=== PATIENT | male | born 1985 | race Caucasian/White ===

== ENCOUNTER → 2017-08-26 14:24 | Outpatient (CLI) | payer OTHER, SELFPAY ==
--- NOTE | 2017-08-26 15:52 | MR_ITS ---
MR head/brain wo con HISTORY: Dizziness with hearing loss and headache, blurred vision, tinnitus ITS.REASON: dizzy ORDERING PHYSICIAN: Ana Bowser PATIENT AGE: 31 years TECHNIQUE: Standard multiplanar multiecho sequences are performed without contrast. FINDINGS: No midline shift, mass effect, intracranial hemorrhage, or hydrocephalus. No evidence of acute infarction. A small extra-axial area of CSF signal intensity is present in the left sylvian region superiorly measuring 11 mm and may be due to a small incidental arachnoid cyst. There are 2 white matter hyperintensities in the deep white matter of the left frontal lobe which are nonspecific. These measure 2 and 4 mm. The cerebellopontine angles, cerebellum, and brainstem are unremarkable. The hippocampal gyri are unremarkable in the temporal horns are symmetric. No sinus air-fluid level or mastoid effusion. IMPRESSION: 1. Nonspecific small T2 white matter hyperintensities deep white matter left frontal lobe. These are nonspecific and could be due to small nonspecific gliotic foci. Migraine headache is also a consideration. Demyelinating process is felt to be less likely based on appearance. 2. Probable incidental small arachnoid cyst in the left sylvian area. 3. No acute intracranial findings
[2017-08-26 18:39] LABS: Basophils % 0.5 % (0.1-2.0); Eosinophils # 0.1 K/mm3 (0.0-0.4); Hematocrit 49.6 % (42.0-52.0); Hemoglobin 16.3 g/dL (14.1-18.0); Lymphocytes # 1.9 K/mm3 (0.7-4.5); Lymphocytes % 25.9 K/mm3 (10-50); Mean Corpuscular Hemoglobin 28.9 pg (27.0-31.2); Mean Corpuscular Volume 87.8 fl (80-94); Mean Platelet Volume 10.2 fl (7.4-10.4); Monocytes # 0.4 K/mm3 (0.1-1.0); Monocytes % 5.4 % (1.7-9.3); Neutrophils % 67.2 % (37.0-80.0); Platelet Count 200 K/mm3 (142-424); Red Blood Count 5.65 M/mm3 (4.60-6.20); Red Cell Distribution Width 12.7 % (11.5-17.5); White Blood Count 7.4 K/mm3 (4.8-10.8)
[2017-08-26 18:59] LABS: Hemoglobin A1C 4.9 % (0.0-7.0)
[2017-08-26 19:38] LABS: Alanine Aminotransferase 40 U/L (12-78); Albumin Level 4.5 gm/dL (3.4-5.0); Albumin/Globulin Ratio 1.2 (1.1-1.8); Alkaline Phosphatase 87 U/L (46-116); Anion Gap 12.3 mEq/L (5-15); Aspartate Amino Transferase 23 U/L (15-37); Bilirubin,Total 0.4 mg/dL (0.2-1.0); Blood Urea Nitrogen 15 mg/dL (7-18); Calcium 9.6 mg/dL (8.5-10.1); Carbon Dioxide 30 mmol/L (21.0-32.0); Chloride 102 mmol/L (98-107); Chol/HDL Ratio 5.5 (1-3.5); Cholesterol 232 mg/dL (140-200); Creatinine,Serum 1.04 mg/dL (0.70-1.30); Estimated Glomerular Filt Rate 83 ml/min (>60); Free T4 (Free Thyroxine) 1.14 ng/dl (0.76-1.46); GFR (African American) 100 ML/MIN (>60); Globulin 3.8 gm/dl (1.3-3.2); Glucose 94 mg/dL (74-106); HDL Cholesterol 42 mg/dL (27-67); LDL Cholesterol 123 mg/dL (0-130); Potassium 4.3 mmoL/L (3.5-5.1); Sodium 140 mmol/L (136-145); Thyroid Stimulating Hormone 3.11 uIU/ml (0.358-3.740); Total Protein,Serum 8.3 gm/dL (6.4-8.2); Triglycerides 335 mg/dL (30-200); VLDL Cholesterol 67 mg/dL (0-40)
[2017-08-28 16:16] LABS: Vitamin D 25 Hydroxy 16.8 ng/mL (30.0-100.0)
== END ==
PROVIDERS: PCP Nurse Practitioner Family; Visit Provider Nurse Practitioner Family
DX: R53.83 Other fatigue (principal); R42 Dizziness and giddiness; R51 Headache; H91.92 Unspecified hearing loss, left ear
CPT/HCPCS: 70551; 80053; 80061; 82652; 83036; 84439; 84443; 85025

== ENCOUNTER → 2019-07-23 14:30 | Outpatient (CLI) | payer OTHER, SELFPAY ==
[2019-07-23 14:33] LABS: Adenovirus,PCR Not Detected (NotDetected); Bordetella Pertussis Not Detected (NotDetected); Chlamydophila Pneumoniae, PCR Not Detected (NotDetected); Coronavirus 229E Not Detected (NotDetected); Coronavirus NL63 Not Detected (NotDetected); Coronavirus OC43 Not Detected (NotDetected); Coronovirus HKU1,PCR Not Detected (NotDetected); Human Metapneumovirus Not Detected (NotDetected); Influenza A, PCR Not Detected (NotDetected); Influenza AH1, 2009 Not Detected (NotDetected); Influenza AH1, PCR Not Detected (NotDetected); Influenza AH3,PCR Not Detected (NotDetected); Mycoplasma Pneumoniae, PCR Not Detected (NotDetected); Parainfluenza 1, PCR Not Detected (NotDetected); Parainfluenza 2, PCR Not Detected (NotDetected); Parainfluenza 3, PCR Not Detected (NotDetected); Parainfluenza 4, PCR Not Detected (NotDetected); Respiratory Syncytial Virus Not Detected (NotDetected); Rhinovirus/Enterovirus Not Detected (NotDetected)
--- NOTE | 2019-07-23 14:35 | XR_ITS ---
PROCEDURE: XR CHEST 2V CLINICAL HISTORY: COUGH, FEVER COMPARISON: No exams were available for comparison FINDINGS: The cardiomediastinal silhouette and pulmonary vascularity are within normal limits. The lungs are clear without infiltrates, suspicious nodules, or pleural effusions. No acute bony abnormalities. IMPRESSION: No acute findings. Dictated by: Slick Fuchs MD 07/23/2019 15:11 Electronically signed by Slick Fuchs MD in [place] 07/23/2019 15:11
[2019-07-23 17:19] LABS: Influenza B, PCR Detected (NotDetected)
== END ==
PROVIDERS: Visit Provider Internal Medicine Adolescent Medicine
DX: R06.02 Shortness of breath (principal); R05 Cough
CPT/HCPCS: 71046; 87486; 87581; 87633; 87798

== ENCOUNTER → 2021-06-09 18:10 | Outpatient (CLI) | payer BC, SELFPAY ==
[2021-06-09 18:45] LABS: Basophils # 0.1 K/mm3 (0-0.2); Basophils % 0.9 % (0.1-2.0); Eosinophils # 0.1 K/mm3 (0.0-0.4); Eosinophils % 1.3 % (0.1-12.0); Hematocrit 43.7 % (42.0-52.0); Hemoglobin 14.9 g/dL (14.1-18.0); Lymphocytes # 2.6 K/mm3 (0.7-4.5); Mean Corpuscular HGB Conc 34.2 g/dL (31.8-35.4); Mean Corpuscular Hemoglobin 29.7 pg (27.0-31.2); Mean Corpuscular Volume 86.9 fl (80-94); Mean Platelet Volume 9.7 fl (7.4-10.4); Monocytes # 0.5 K/mm3 (0.1-1.0); Neutrophils # 5.7 K/mm3 (1.8-7.8); Neutrophils % 62.8 % (37.0-80.0); Platelet Count 228 K/mm3 (142-424); Red Blood Count 5.03 M/mm3 (4.60-6.20); Red Cell Distribution Width 13.5 % (11.5-17.5); White Blood Count 9.1 K/mm3 (4.8-10.8)
[2021-06-09 19:05] LABS: Alanine Aminotransferase 37 U/L (12-78); Albumin Level 4.7 g/dl (3.5-5.0); Albumin/Globulin Ratio 1.7 (1.1-1.8); Alkaline Phosphatase 78 U/L (38-126); Anion Gap 14.2 mEq/L (5-15); Aspartate Amino Transferase 38 U/L (17-59); Bilirubin,Total 0.4 mg/dl (0.2-1.3); Blood Urea Nitrogen 14 mg/dl (9-20); Calcium 9.3 mg/dl (8.4-10.2); Carbon Dioxide 26 mmol/L (22.0-30.0); Chloride 105 mmol/L (98-107); Cholesterol 203 mg/dl (140-200); Estimated Glomerular Filt Rate 76 ml/min (>60); GFR (African American) 92 ML/MIN (>60); Globulin 2.7 g/dL (1.3-3.2); Glucose 85 mg/dl (74-100); HDL Cholesterol 34 mg/dl (40-60); Potassium 4.2 mmoL/L (3.5-5.1); Sodium 141 mmol/L (136-145); Total Protein,Serum 7.4 g/dl (6.3-8.2)
[2021-06-09 19:11] LABS: Triglycerides 465 mg/dl (30-150)
[2021-06-09 19:21] LABS: T4 (Thyroxine) 8.7 ug/dl (5.53-11.0)
[2021-06-09 19:22] LABS: 25-OH Vitamin D, Total 21.9 ng/mL (30-100)
[2021-06-09 19:23] LABS: Amphetamine/Metha Screen,Urine Negative ng/ml (<1000)
[2021-06-09 19:24] LABS: Barbiturates Screen,Urine Negative ng/ml (<200)
[2021-06-09 19:25] LABS: Benzodiazepines Screen,Urine Negative ng/ml (<200); Cannabinoid Screen,Urine Negative ng/ml (<50)
[2021-06-09 19:26] LABS: Cocaine Screen,Urine Negative ng/ml (<300)
[2021-06-09 19:27] LABS: Methadone Screen,Urine Negative ng/ml (<300); Opiate Screen,Urine Negative ng/ml (<300)
[2021-06-09 19:28] LABS: Phencyclidine Screen,Urine Negative ng/ml (<25)
== END ==
PROVIDERS: Visit Provider Nurse Practitioner Family
DX: E66.9 Obesity, unspecified (principal); E55.9 Vitamin D deficiency, unspecified; F51.01 Primary insomnia; Z68.36 Body mass index [BMI] 36.0-36.9, adult; Z79.899 Other long term (current) drug therapy
CPT/HCPCS: 80053; 80061; 80305; 82306; 84436; 84443; 85025

== ENCOUNTER 2023-07-10 09:19 | Outpatient (CLI) | payer OTHER, SELFPAY ==
--- NOTE | 2023-07-10 09:26 | US_ITS ---
FINAL REPORT TECHNIQUE: Sonographic images of the right upper quadrant were obtained. CLINICAL HISTORY: RUQ PAIN COMPARISON: None FINDINGS: PANCREAS: Unremarkable. LIVER: There is fatty infiltration of the liver.. No focal hepatic lesion. No intrahepatic biliary ductal dilatation. GALLBLADDER: No gallstones. No gallbladder wall thickening or pericholecystic fluid. There is mild distention of the gallbladder. COMMON DUCT: 3 mm. Normal for age. RIGHT KIDNEY: The right kidney measures 10.5 cm. There is no hydronephrosis, mass, or stone. FREE FLUID: None. IMPRESSION: Fatty infiltration of the liver. Mild distention of the gallbladder without stones seen. Reviewed, Interpreted and Dictated by Leonela Serrato MD Transcribed by Corrina Cuevas Authenticated and [facility]
== END 2023-07-10 23:59 ==
PROVIDERS: PCP Nurse Practitioner Family; Visit Provider Nurse Practitioner Family
DX: R10.11 Right upper quadrant pain (principal)
CPT/HCPCS: 76705

== ENCOUNTER 2023-07-26 09:34 | Outpatient (CLI) | payer OTHER, SELFPAY ==
--- NOTE | 2023-07-26 09:40 | NM_ITS ---
FINAL REPORT CLINICAL HISTORY: RT UPPER QUADRANT PAIN COMPARISON: None FINDINGS: Sequential anterior projection images of the abdomen were obtained after the intravenous injection of 8.07 mCi technetium 99m Choletec. There is normal uptake of radiotracer by the liver. The bile ducts and bowel are visualized by 5 minutes. Gallbladder activity is seen by 20 minutes. After 1 hour, 2.5 ?g of CCK was injected intravenously for calculation of gallbladder ejection fraction. The gallbladder ejection fraction is 70%, which is within normal limits. IMPRESSION: No evidence of cystic duct or bile duct obstruction. Normal gallbladder ejection fraction of 70%. Reviewed, Interpreted and Dictated by Adama Unger III, MD Transcribed by Che Lechuga Authenticated and [facility]
[2023-07-26] MEDS: SINCALIDE 2.5 MCG in 0.9 % SODIUM CHLORIDE 50 ML 100 MCG IV (09:50)
[2023-07-26] MEDS: ISOTOPE CHOLETECH;1 DOSE (UP TO 15 MCI) IV (11:10)
[2023-07-26] MEDS: SODIUM CHLORIDE 0.9% 10ML SYR (RAD ONLY) 10 ML IV (11:10)
== END 2023-07-26 23:59 ==
LOC: RAD 09:35
PROVIDERS: PCP Nurse Practitioner Family; Visit Provider Nurse Practitioner Family
DX: R10.11 Right upper quadrant pain (principal)
CPT/HCPCS: 78227; A9537; J2805

== ENCOUNTER 2023-07-26 16:28 | Emergency (ER) | payer OTHER, SELFPAY ==
[2023-07-26] VITALS (8 sets, daily range): BP systolic 99–128; BP diastolic 66–88; PULSE 57–74; RESP 16; TEMP 36.9; O2SAT 96–98; BMI 35.3
[2023-07-26 16:58] LABS: Basophils # 0.1 K/mm3 (0-0.2); Basophils % 1.3 % (0.1-2.0); Chloride 105 mmol/L (98-107); Eosinophils # 0.1 K/mm3 (0.0-0.4); Eosinophils % 1.8 % (0.1-12.0); Hematocrit 46.4 % (42.0-52.0); Hemoglobin 15.2 g/dL (14.1-18.0); Lymphocytes # 1.9 K/mm3 (0.7-4.5); Lymphocytes % 26.3 % (10-50); Mean Corpuscular HGB Conc 32.9 g/dL (31.8-35.4); Mean Corpuscular Hemoglobin 29.9 pg (27.0-31.2); Mean Platelet Volume 9.2 fl (7.4-10.4); Monocytes # 0.4 K/mm3 (0.1-1.0); Monocytes % 5.9 % (1.7-9.3); Neutrophils # 4.8 K/mm3 (1.8-7.8); Neutrophils % 64.7 % (37.0-80.0); Platelet Count 207 K/mm3 (142-424); Red Cell Distribution Width 13.5 % (11.5-17.5); Sodium 140 mmol/L (136-145); White Blood Count 7.4 K/mm3 (4.8-10.8)
[2023-07-26 17:00] LABS: Blood Urea Nitrogen 18 mg/dl (9-20); Creatinine Clearance Estimated 136 mL/min (50-200); Estimated Glomerular Filt Rate 62 ml/min (>60); GFR (African American) 75 ML/MIN (>60)
[2023-07-26 17:01] LABS: Alanine Aminotransferase 32 U/L (12-78); Albumin Level 4.3 g/dl (3.5-5.0); Albumin/Globulin Ratio 1.4 (1.1-1.8); Alkaline Phosphatase 77 U/L (38-126); Aspartate Amino Transferase 33 U/L (17-59); Bilirubin,Direct 0.2 mg/dl (0.0-0.4); Bilirubin,Total 0.5 mg/dl (0.2-1.3); Calcium 8.8 mg/dl (8.4-10.2); Carbon Dioxide 31 mmol/L (22.0-30.0); Glucose 89 mg/dl (74-100); Lipase 50 U/L (23-300); Total Protein,Serum 7.3 g/dl (6.3-8.2)
--- NOTE | 2023-07-26 17:10 | ED_ITS ---
Discharge Plan Disposition Patient Disposition: Home, Self-Care Prescriptions Prescriptions: New dexamethasone 6 mg tablet 6 mg PO DAILY Qty: 5 0RF valacyclovir 1 gram tablet 1,000 mg PO Q8H 10 Days Qty: 30 0RF Referrals Follow up/Referrals: Klaudia Post APRN [Primary Care Provider] - See instructions Activity Restrictions/Add. Instructions Additional Instructions/Restrictions: Call your family doctor to establish care for this visit to the emergency department and schedule follow-up within 48 hours to ensure improvement. If you have any worsening of your condition or any other concerning signs or symptoms, return to the emergency department or your primary care doctor for further evaluation. Clinical Impressions Clinical Impression: Abdominal pain, RLQ Instructions Patient Instructions: DI for Acute Abdominal Pain Discharge ED Provider: Dane Benjamin General Adult HPI General Chief complaint: Abdominal Pain Stated complaint: RLQ pain,nausea Time Seen by Provider: 07/26/23 16:33 Mode of Arrival: Ambulatory Source of Information: Patient Limitations: No Limitations Description of Symptoms (Recalled from ER Triage Doc. by RN): pt presents to ED with c/o RLQ pain radiating from the belly button. pt did have hyda scan for gallbladder that was normal this am. pt ongoing for awhile. History of Present Illness HPI narrative: 37-year-old male history of chronic abdominal pain and chronic diarrhea presenting with right lower quadrant pain. Patient states he has right upper quadrant pain pretty consistently with associated nonbloody, non-mucousy diarrhea. This has been going on for years. Patient has been getting this abdominal pain worked up on an outpatient basis. Today had HIDA scan due to concern for distended gallbladder and delayed emptying. HIDA scan with with 70% clearance. Shortly after HIDA scan, patient began having acute, stabbing right lower quadrant pain. Associated with difficulty and pain with walking, difficulty and pain with sitting up and riding in the car, general discomfort. No nausea or vomiting, no changes in his diarrhea or stool output. It is moderate, made worse with pressure, does not radiate. Related Data Previous Rx's Medication Instructions Recorded dexamethasone 6 mg tablet 6 mg PO DAILY #5 tabs 07/26/23 valacyclovir 1 gram tablet 1,000 mg PO Q8H 10 days #30 tabs 07/26/23 Allergies Allergy/AdvReac Type Severity Reaction Status Date / Time No Known Allergies Allergy Verified 06/20/22 14:24 [facility] Disclaimer: The information contained in this section may have been updated after the patient was seen, as this information can be updated by other users. Medical History (Updated 07/26/23 @ 20:44 by Dane Benjamin MD) Vitamin D deficiency (~08/29/17) Social History Smoking Status: Never smoker alcohol intake: never substance use type: denies use current occupational status: employed Travel in the last 8 weeks: None household members: spouse and children housing: house ROS Obtained: Yes All systems reviewed & no additional complaints except as documented Physical Exam General General appearance: alert and in no apparent distress Head Head exam: atraumatic and normocephalic Eye Eye exam: Present normal appearance, PERRL and EOMI ENT ENT exam: Present mucous membranes moist Neck Neck exam: Present normal inspection, full ROM and trachea midline Respiratory Respiratory exam: Absent respiratory distress, wheezes, stridor, accessory muscle use or prolonged expiratory phase Cardiovascular Cardiovascular exam: Present normal rhythm Abdominal Exam Abdominal exam: Present soft, tenderness and Franco's sign; Absent distention, guarding, rebound or rigidity Abdominal tenderness: Present RUQ, RLQ and moderate Extremities Exam Extremities exam: Absent edema Neurological Exam Neurological exam: Present alert, oriented X3, CN II-XII intact and normal gait; Absent motor sensory deficit Skin Skin exam: Present warm and dry; Absent diaphoresis or erythema Medical Decision Making Medical Records Medical records reviewed: Yes I reviewed the patient's medical records. Saman Inquiry Pt receiving controlled substance: No Saman was queried for this patient: No Vital Signs: 07/26/23 16:29 07/26/23 17:19 07/26/23 17:31 Temperature 98.4 F Temperature Source Oral Pulse Rate 74 68 Pulse Rate [Left Radial] 73 Respiratory Rate 16 Blood Pressure 115/74 114/74 Blood Pressure [Right Arm] 128/88 Blood Pressure Mean [Right Arm] 101 02 Sat by Pulse Oximetry 97 96 98 Oxygen Delivery Method Room Air Room Air Room Air 07/26/23 17:46 07/26/23 18:01 07/26/23 18:15 Temperature Temperature Source Pulse Rate 70 63 57 L Pulse Rate [Left Radial] Respiratory Rate Blood Pressure 109/66 L 99/69 L 122/73 Blood Pressure [Right Arm] Blood Pressure Mean [Right Arm] 02 Sat by Pulse Oximetry 97 97 97 Oxygen Delivery Method Room Air 07/26/23 18:31 Temperature Temperature Source Pulse Rate 63 Pulse Rate [Left Radial] Respiratory Rate Blood Pressure 122/67 Blood Pressure [Right Arm] Blood Pressure Mean [Right Arm] 02 Sat by Pulse Oximetry 98 Oxygen Delivery Method Lab Data Lab Results 07/26/23 16:34: Urine Color Yellow, Urine Appearance Clear, Urine pH 6.0, Ur Specific [place] >= 1.030, Urine Protein Negative, Urine Glucose (UA) Negative, Urine Ketones Negative, Urine Blood Negative, Urine Nitrate Negative, Urine Bilirubin Negative, Urine Urobilinogen 0.2, Ur Leukocyte Esterase Negative, Urine RBC None, Urine WBC None, Ur Squamous Epith Cells Occasional, Urine Bacteria None 07/26/23 16:46: WBC 7.4, RBC 5.10, Hgb 15.2, Hct 46.4, MCV 91.0, MCH 29.9, MCHC 32.9, RDW 13.5, Plt Count 207, MPV 9.2, Neut % (Auto) 64.7, Lymph % (Auto) 26.3, Gillespie % (Auto) 5.9, Eos % (Auto) 1.8, Baso % (Auto) 1.3, Neut # (Auto) 4.8, Lymph # (Auto) 1.9, Gillespie # (Auto) 0.4, Eos # (Auto) 0.1, Baso # (Auto) 0.1, Sodium 140, Potassium 4.0, Chloride 105, Carbon Dioxide 31 H, Anion Gap 8.0, BUN 18, C reatinine 1.30 H, Estimated Creat Clear 136, Estimated GFR 62, Est GFR ( Amer) 75, Glucose 89, Calcium 8.8, Total Bilirubin 0.5, Direct Bilirubin 0.2, AST 33, ALT 32, Alkaline Phosphatase 77, Total Protein 7.3, Albumin 4.3, Globulin 3.0, Albumin/Globulin Ratio 1.4, Lipase 50 07/26/23 17:18: Lactate 1.1 07/26/23 16:46 07/26/23 16:46 Orders (Tests/Meds): ED MEDICATIONS Discontinued Medications Generic Name Dose Route Start Last Admin Trade Name Freq PRN Reason Stop Dose Admin Lactated Ringer's 1,000 mls @ 999 mls/hr 07/26/23 17:09 07/26/23 17:18 Lactated Ringer's 1000 Ml Bag IV 07/26/23 18:09 999 mls/hr .Q1H1M ONE Administration Ketorolac Tromethamine 15 mg 07/26/23 16:48 07/26/23 17:11 Ketorolac 30mg/Ml Vial IV 07/26/23 16:49 15 mg ONCE ONE Administration ORDERS Category Date Time Status CT abdomen pelvis wo con Stat Cat Scan 07/26/23 18:41 Completed Bilirubin,Direct Stat Lab 07/26/23 16:46 Completed CBC w/Auto Diff [Complete Blood Count Auto Diff] Stat Lab 07/26/23 16:46 Completed CMP [Comprehensive Metabolic Panel] Stat Lab 07/26/23 16:46 Completed Diarrhea 6-11 Panel, Cdiff PCR Stat Lab 07/26/23 17:09 Ordered Lactic Acid Stat Lab 07/26/23 17:18 Completed Lipase Stat Lab 07/26/23 16:46 Completed UA [Urinalysis and Microscopic] Stat Lab 07/26/23 16:34 Completed Medical Decision Narrative: 37-year-old male history of chronic abdominal pain and chronic diarrhea presenting with right lower quadrant pain. Patient states he has right upper quadrant pain pretty consistently with associated nonbloody, non-mucousy diarrhea. This has been going on for years. Patient has been getting this abdominal pain worked up on an outpatient basis. Today had HIDA scan due to concern for distended gallbladder and delayed emptying. HIDA scan with with 70% clearance. Shortly after HIDA scan, patient began having acute, stabbing right lower quadrant pain. Associated with difficulty and pain with walking, difficulty and pain with sitting up and riding in the car, general discomfort. No nausea or vomiting, no changes in his diarrhea or stool output. It is moderate, made worse with pressure, does not radiate. History was obtained via conversation with patient and . On arrival, patient hemodynamically stable, alert, oriented x4, appropriate, GCS 15, moving all extremities spontaneously, pupils equal and reactive to light. Full physical exam performed and significant for right upper quadrant, right lower quadrant abdominal tenderness without signs of peritonitis. No flank tenderness. Patient in no acute distress, not actively retching, appears very well, but laying very still in bed stating comfort level is higher with less motion. Differential includes colitis, diverticulitis, nephrolithiasis, UTI, cholecystitis, choledocholithiasis, appendicitis, torsion, hernia, hepatitis, aortic pathology, mesenteric ischemia among others. Patient was given Toradol IV 15 mg for symptomatic management and correction of underlying abnormalities. Workup independently interpreted and significant for nonactionable CBC. Patient does have mild dehydration with creatinine 1.3. He was given fluids for this. Urinalysis negative. CT abdomen pelvis without acute intra-abdominal pathology, appendix appears normal. Patient does have spinal stenosis from previous injury. See radiology read for full review of final results. On reevaluation, patient resting comfortably bed. Given patient presentation, workup, history, this most likely represents neuropathic abdominal pain. Because patient at baseline without signs or symptoms of clinical decompensation, deemed appropriate for discharge. Results were relayed to patient who voiced understanding and were agreeable to outpatient management and follow up. At the time of discharge the patient was hemodynamically stable, tolerating PO, and mobilizing appropriately. Critical Care Critical Care Time Critical Care Time: No
[2023-07-26] MEDS: KETOROLAC 30MG/ML VIAL 15 MG IV (17:11)
[2023-07-26] MEDS: LACTATED RINGERS 1000ML 1,000 ML 999 ML IV (17:18)
[2023-07-26 17:37] LABS: Lactic Acid 1.1 mmol/L (0.7-2.1)
[2023-07-26 18:20] LABS: Microscopic, Urine URINE MICROSCOPIC (MICROSCOPIC)
[2023-07-26 18:27] LABS: Appearance,Urine CLEAR (Clear); Bilirubin,Urine Negative (Negative); Blood, Urine Negative (Negative); Color,Urine YELLOW (Yellow); Glucose,Urine (UA) Negative (Negative); Ketones,Urine Negative (Negative); Leukocyte Esterase,Urine Negative (Negative); Nitrate,Urine Negative (Negative); Protein,Urine Negative (Negative); Specific Gravity, Urine >= 1.030 (1.005-1.030); Urobilinogen,Urine 0.2 EU/dl (0.2)
--- NOTE | 2023-07-26 18:41 | CT_ITS ---
PROCEDURE INFORMATION: Exam: CT Abdomen And Pelvis Without Contrast Exam date and time: 07/26/2023 7:00 PM Age: 37 years old Clinical indication: Abdominal pain; Additional info: Rlq pain TECHNIQUE: Imaging protocol: Computed tomography of the abdomen and pelvis without contrast. Radiation optimization: All CT scans at this facility use at least one of these dose optimization techniques: automated exposure control; mA and/or kV adjustment per patient size (includes targeted exams where dose is matched to clinical indication); or iterative reconstruction. COMPARISON: No relevant prior studies available. FINDINGS: Liver: Unremarkable. Gallbladder and bile ducts: Unremarkable. Pancreas: Unremarkable. Spleen: Unremarkable. Adrenal glands: Unremarkable. Kidneys and ureters: Unremarkable. Stomach and bowel: Unremarkable. Appendix: No evidence of appendicitis. Intraperitoneal space: No free fluid. No pneumoperitoneum. Vasculature: Unremarkable. Lymph nodes: Unremarkable. Urinary bladder: Unremarkable. Reproductive: Unremarkable. 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 No evidence of acute osseous abnormality or suspicious bone lesions. Soft tissues: Unremarkable. IMPRESSION: 1. No acute findings in the abdomen or pelvis. 2. 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
[2023-07-26 18:51] LABS: Squamous Epithelial Cell,Urine Occasional #/hpf (0-5)
== END 2023-07-26 20:52 | disposition home or self-care (01) ==
PROVIDERS: Emergency Provider Emergency Medicine; PCP Nurse Practitioner Family
DX: R10.31 Right lower quadrant pain (principal); R19.7 Diarrhea, unspecified
CPT/HCPCS: 74176; 80053; 81001; 82248; 83605; 83690; 85025; 96361; 96374; 99285

== ENCOUNTER 2023-08-07 11:18 | Outpatient (CLI) | payer OTHER, SELFPAY ==
--- NOTE | 2023-08-07 11:19 | CT_ITS ---
FINAL REPORT TECHNIQUE: After the administration of oral and intravenous contrast, axial images were obtained through the abdomen and pelvis by computed tomography. The study was performed with techniques to keep radiation dose as low as reasonably achievable, (ALARA). Individual dose reduction techniques using automated exposure control or adjustment of mA and/or kV according to the patient's size were employed. CLINICAL HISTORY: abdominal pain, n/v/d COMPARISON: 07/26/2023 FINDINGS: Abdomen: The lung bases are clear. There is mild fatty infiltration of the liver. The gallbladder is present. The spleen, pancreas, adrenals and kidneys appear unremarkable. The aorta is normal in caliber. There is no free fluid or adenopathy. Pelvis: The appendix is normal. The urinary bladder is unremarkable. There is no free fluid or adenopathy. Moderate spinal canal compromise noted on the prior CT of July 25 remains present, particularly at the L4-5 and L5-S1 levels. IMPRESSION: No acute intra-abdominal process. Mild fatty infiltration of the liver. Reviewed, Interpreted and Dictated by Spencer Babin MD Transcribed by Corrina Cuevas Authenticated and [facility]
[2023-08-07] MEDS: SODIUM CHLORIDE 0.9% 10ML SYR (RAD ONLY) 10 ML IV (11:41)
[2023-08-07] MEDS: IOPAMIDOL-370 (76%);100ML BOTTLE 75 ML IV (11:41)
== END 2023-08-07 23:59 ==
LOC: RAD 11:19
PROVIDERS: PCP Nurse Practitioner Family; Visit Provider Surgery
DX: R10.31 Right lower quadrant pain (principal)
CPT/HCPCS: 74177; Q9967

== ENCOUNTER 2023-08-23 08:19 | Day surgery (SDC) | payer OTHER, SELFPAY ==
[2023-08-23 08:57] VITALS: BP 109/77; PULSE 70; RESP 18; TEMP 36.6; O2SAT 97; BMI 33.3
[2023-08-23] MEDS: LACTATED RINGERS 1000ML 1,000 ML 25 ML IV (09:01)
--- NOTE | 2023-08-23 09:27 | EXP.ANES.CKL ---
[facility] Disclaimer: The information contained in this section may have been updated after the patient was seen, as this information can be updated by other users. Medical History Vitamin D deficiency (~08/29/17) Surgical History H/O right knee surgery History of back surgery Family History Other Colon cancer Family history of myocardial infarction Family history of ulcerative colitis Social History Smoking Status: Never smoker alcohol intake: never substance use type: denies use current occupational status: employed Travel in the last 8 weeks: None household members: spouse and children housing: house [facility] Anesthesia Checklist Patient Identification Patient Identification: Arm Band and Verbal (Name & ) Structural Data Admitted From: Home Planned Operative Procedure/s: Colonoscopy Consent for Planned Operative Procedure(s) Verified: Yes NPO Status Verified Time NPO: 00:00 Additional verifications Anesthesia Reactions: No Airway Assessment Mallampati Score:: Class III C-Spine Mobility Assessed: Yes TMJ Mobility Assessed: Yes Dentition: Good Dentition Neurological Assessment Level of Consciousness: Awake Hx Seizures: No Numbness or tingling in extremities: No Anesthesia Plan Anesthesia Risk discussed: Yes Anesthesia Plan: Verified ASA Class: II Anesthesia Type: MAC
--- NOTE | 2023-08-23 09:32 | P.PCN_ITS ---
Procedure: Date: 08/23/23 Patient Date of :: 1985 Procedure Performed:: Total colonoscopy with polypectomy and biopsies Indications:: Patient presents for colonoscopy. He is a 37-year-old male originally referred and seen in the office for possible gallbladder. He works as a local combination truck driver. He describes symptoms ongoing for about a year. It has been somewhat progressively worse. He had a gallbladder ultrasound done which revealed fatty liver. He had a HIDA scan done which revealed an ejection fraction of 70%. He did have some diffuse cramping abdominal pain with CCK. He describes symptoms of diarrhea resembling bile. This is rather explosive. It is often preceded by cramping diffuse abdominal pain. His symptoms are usually worse postprandially. He has associated nausea. He actually had localization of the pain to the right lower quadrant and right pelvic area. He had an episode of this occurring which became quite severe on 07/26/2023 at which time he was seen and evaluated in the emergency department. He had a CT scan of the abdomen and pelvis performed without any contrast whatsoever. This reveals no acute findings in the abdomen or pelvis. Of note, he has congenital spinal stenosis with superimposed hypertrophic degenerative changes resulting in moderate to severe spinal canal stenosis. Of note, his father had colon cancer at approximately his age. Etiology of his symptoms seem rather unusual and unclear. Plan was made for tentative colonoscopy given the family history and symptoms. However CT scan with actual IV and oral contrast was ordered prior to that. This revealed no acute intra-abdominal process. Mild fatty infiltration of the liver. Due to the fact that he was unable to get an appointment with gastroenterology for some time plan was made to proceed with colonoscopy. He does have an upcoming appointment with [facility] on 09/12/2023. He has had ongoing significant symptoms of cramping pain with sharp pains in different areas of his abdomen. Occasionally will be in the right lower quadrant, right upper quadrant, towards his back, etc. He has appreciable diarrhea. He has no appetite. . Performing Provider:: Adama Diaz MD Referring Provider:: Klaudia Post Sedation:: MAC sedation Procedure:: Patient history was obtained and appropriate physical examination was performed. Patient's medications and allergies were reviewed. Informed consent was obtained after explaining the benefits, alternatives, and risks of the procedure including, but not limited to, bleeding, perforation, missed lesions, and adverse reaction to anesthesia medications. Patient was transported to endoscopy procedure room. Patient was connected to monitoring devices. Throughout the procedure the patient's blood pressure, pulse, and oxygen saturations were monitored continuously. Patient identification and planned procedure were verified by the staff. Patient was positioned in lateral decubitus position. Digital anorectal exam was performed. Variable stiffness Olympus colonoscope was inserted and advanced under direct visualization to the cecum. Adequacy of the colonic preparation was noted. The colonoscope was advanced a short distance into the terminal ileum. The colonoscope was then slowly withdrawn while carefully examining the color, texture, anatomy, and integrity of the mucosoa circumferentially. Within the rectum retroflexion was performed. Colonoscope was then withdrawn. . Impression: Colonic preparation was good. There was some lymphoid tissue within the terminal ileum. Biopsies were obtained. He underwent random right and random left colon biopsies using biopsy forceps to evaluate for microscopic colitis. At the hepatic flexure there was an adenomatous appearing polyp removed with cold snare with residual tissue removed with biopsy forceps. In the proximal transverse colon just distal to the hepatic flexure there was a possible diminutive polyp removed with biopsy forceps. In the sigmoid colon there was a polyp removed with cold snare. Rectosigmoid region there were a couple of hyperplastic appearing polyps removed with biopsy forceps. . Findings:: Polyps as noted above Rare sigmoid diverticulosis Recommendations:: Likely repeat colonoscopy 3 years given family history of colon cancer in first- degree relative at a young age with probable adenomatous appearing polyps. As to the etiology of his symptoms, this is somewhat unclear. This may be functional/medical/dietary. Agree with gastroenterology evaluation. Unlikely gallbladder etiology. Complications:: None immediately apparent Estimated blood obtained (mL): 3 Colonoscopy Component Colonoscopy Component Was a colonoscopy performed during today's procedure?: Yes Recommended follow up colonoscopy of at least 10 years?: No If no, follow up colonoscopy recommended in ___ years?: See above Reason for not recommending >/= 10 yr follow-up interval?: See above
[2023-08-23 09:44] VITALS: O2SAT 97
[2023-08-23 10:24] VITALS: BP 120/73; PULSE 71; RESP 16; TEMP 36.4; O2SAT 92
[2023-08-23 10:34] VITALS: BP 118/73; PULSE 65; RESP 16; O2SAT 92
[2023-08-23 10:44] VITALS: BP 126/84; PULSE 78; RESP 16; O2SAT 96
[2023-08-23 10:54] VITALS: BP 129/70; PULSE 89; RESP 16; TEMP 36.6; O2SAT 98
== END 2023-08-23 10:54 | disposition home or self-care (01) ==
PROVIDERS: PCP Nurse Practitioner Family; Visit Provider Surgery
PROC: (CPT 45380; principal; 2023-08-23 09:30)
DX: D12.5 Benign neoplasm of sigmoid colon (principal); D12.3 Benign neoplasm of transverse colon; K63.5 Polyp of colon; R63.8 Other symptoms and signs concerning food and fluid intake; K76.0 Fatty (change of) liver, not elsewhere classified; R11.0 Nausea; R19.7 Diarrhea, unspecified; R10.31 Right lower quadrant pain; Z80.0 Family history of malignant neoplasm of digestive organs; Z12.11 Encounter for screening for malignant neoplasm of colon; K57.92 Diverticulitis of intestine, part unspecified, without perforation or abscess without bleeding
CPT/HCPCS: 45380; 45385; J2704

== ENCOUNTER 2023-09-19 08:22 | Outpatient (CLI) | payer OTHER, SELFPAY ==
[2023-09-19 08:27] LABS: Adenovirus F 40/41, stool Not Detected (NotDetected); Astrovirus Not Detected (NotDetected); Campylobacter Not Detected (NotDetected); Clostridium Difficile A/B, PCR Not Detected (NotDetected); Cryptosporidium Not Detected (NotDetected); Cyclospora Cayetanesis Not Detected (NotDetected); Entamoeba histolytica Not Detected (NotDetected); Enteroaggregative E coli Not Detected (NotDetected); Enterotoxigenic E coli Not Detected (NotDetected); Giardia lamblia Not Detected (NotDetected); Norovirus Not Detected (NotDetected); Plesimonas Shigalloides, PCR Not Detected (NotDetected); Rotavirus A Not Detected (NotDetected); Salmonella, PCR Not Detected (NotDetected); Sapovirus Not Detected (NotDetected); Shiga-like toxin E coli Not Detected (NotDetected); Shigella Enterovasive E coli Not Detected (NotDetected); Vibrio Cholerae Not Detected (NotDetected); Vibrio, PCR Not Detected (NotDetected); Yersinia Entercolitica, PCR Not Detected (NotDetected)
[2023-09-19 09:20] LABS: Chloride 106 mmol/L (98-107); Potassium 3.9 mmoL/L (3.5-5.1); Sodium 139 mmol/L (136-145)
[2023-09-19 09:22] LABS: Blood Urea Nitrogen 14 mg/dl (9-20); Estimated Glomerular Filt Rate 83 ml/min (>60); GFR (African American) 101 ML/MIN (>60)
[2023-09-19 09:23] LABS: Alanine Aminotransferase 32 U/L (12-78); Albumin Level 4.3 g/dl (3.5-5.0); Albumin/Globulin Ratio 1.3 (1.1-1.8); Alkaline Phosphatase 86 U/L (38-126); Anion Gap 10.9 mEq/L (5-15); Aspartate Amino Transferase 34 U/L (17-59); Bilirubin,Total 0.8 mg/dl (0.2-1.3); Calcium 9.2 mg/dl (8.4-10.2); Carbon Dioxide 26 mmol/L (22.0-30.0); Globulin 3.2 g/dL (1.3-3.2); Glucose 110 mg/dl (74-100); Total Protein,Serum 7.5 g/dl (6.3-8.2)
[2023-09-19 09:31] LABS: INR 1.02 (0.9-1.1)
[2023-09-19 12:36] LABS: Enteropathogenic E coli Detected (NotDetected)
[2023-09-20 13:15] LABS: AFP, Tumor Marker 3.1 ng/mL (0.0-6.9); HBsAg Screen Negative (Negative); HCV Ab Non Reactive (Non Reactive); Hep A Ab, IGM Negative (Negative); Hep B Core Ab, IgM Negative (Negative)
[2023-09-27 01:11] LABS: Calprotectin, Fecal 290 ug/g (0-120)
[2023-09-28 07:59] LABS: Pancreatic Elastase, Fecal 396 (>200)
[2023-09-28 12:14] LABS: Fibrosis Score 0.05; Fibrosis Stage F0-NO FIBROSIS; NASH Grade N1-MILD NASH; NASH Score 0.26; Steatosis Grade S2-S3; Steatosis Score 0.63
[2023-09-28 12:15] LABS: Alpha 2-Macroglobulins, Qn 113; Apolipoprotein A-1 121; Bilirubin, Total 0.2; Haptoglobin 165
[2023-09-28 12:16] LABS: ALT (SGPT) P5P 26; AST (SGOT) P5P 24; Cholesterol, Total 182; GGT 46
[2023-09-28 12:17] LABS: Glucose 104; Triglycerides 209
== END 2023-09-19 23:59 | disposition home or self-care (01) ==
PROVIDERS: Surgery; PCP Nurse Practitioner Family; Visit Provider Nurse Practitioner
DX: R10.31 Right lower quadrant pain (principal); R10.10 Upper abdominal pain, unspecified; Z83.79 Family history of other diseases of the digestive system; K92.1 Melena; K76.0 Fatty (change of) liver, not elsewhere classified; R10.13 Epigastric pain; R89.3 Abnormal level of substances chiefly nonmedicinal as to source in specimens from other organs, systems and tissues; A04.0 Enteropathogenic Escherichia coli infection
CPT/HCPCS: 36415; 80053; 80074; 82105; 82656; 83993; 85610; 87506

== ENCOUNTER 2024-01-09 10:53 | Day surgery (SDC) | payer OTHER, SELFPAY ==
[2024-01-06 17:09] VITALS: BMI 35.3
[2024-01-09 11:10] VITALS: BP 156/81; PULSE 66; RESP 16; TEMP 36.4; O2SAT 99
--- NOTE | 2024-01-09 12:13 | EXP.ANES.CKL ---
[facility] Disclaimer: The information contained in this section may have been updated after the patient was seen, as this information can be updated by other users. Medical History Vomiting Melena Nausea Vitamin D deficiency (~08/29/17) Surgical History H/O right knee surgery History of back surgery Family History Other Colon cancer Family history of myocardial infarction Family history of ulcerative colitis Social History Smoking Status: Never smoker alcohol intake: never substance use type: denies use current occupational status: employed Travel in the last 8 weeks: None household members: spouse and children housing: house [facility] Anesthesia Checklist Patient Identification Patient Identification: Arm Band, Family and Verbal (Name & ) Structural Data Admitted From: Home Planned Operative Procedure/s: EGD w/dilation Consent for Planned Operative Procedure(s) Verified: Yes Verified Documents: Surgical Consent and History and Physical NPO Status Verified Time NPO: 00:00 Chart Verification Results Verified: CBC, BMP, PT, PTT, INR and Chest Xray Additional verifications Patient : No Anesthesia Reactions: No Cardiovascular Assessment Heart Sounds: S1 & S2 Pulse Rhythm: Irregular Airway Assessment Mallampati Score:: Class II C-Spine Mobility Assessed: Yes (FROM demonstrated) TMJ Mobility Assessed: Yes Dentition: Good Dentition (nothing loose per pt.) Neurological Assessment Level of Consciousness: Awake, Alert, Appropriate and Follows Commands Hx Seizures: No Numbness or tingling in extremities: No Anesthesia Plan Anesthesia Risk discussed: Yes Anesthesia Plan: Verified ASA Class: II Anesthesia Type: MAC
[2024-01-09 12:53] VITALS: O2SAT 100
--- NOTE | 2024-01-09 13:10 | HMH.SCOPE ---
Procedure: Date: 01/09/24 Patient Date of :: 1985 Procedure Performed:: EGD/biopsies/dilation Indications:: Chronic GERD/occasional dysphagia Performing Provider:: Lanny Hooker MD Referring Provider:: Mila Hooker APRN Sedation:: Propofol Procedure:: The gastroscope was gently passed through the incisoral orifice into the oral cavity and under direct visualization the esophagus was intubated. The endoscope was passed down the esophagus, through the stomach, and into the duodenum. Color, texture, mucosa, and anatomy of the esophagus, stomach, and duodenum were carefully examined with the scope. Findings:: Oropharynx: normal Esophagus: normal, empiric dilation performed with 58F bougie EG Junction: intact at 40 cm Cardia: normal Fundus: normal Body: normal, random biopsies obtained for h.pylori evaluation Antrum: normal Duodenal bulb: normal Duodenum (second and third portion): normal Impression: Overall normal EGD Symptomatic dysphagia treated with bougie dilation Specimens:: Gastric Recommendations:: Antireflux routine daily. PPI medication prn. Repeat dilation as clinically indicated. Complications:: None Estimated blood obtained (mL): 0 Colonoscopy Component Colonoscopy Component Was a colonoscopy performed during today's procedure?: No
[2024-01-09 13:15] VITALS: BP 111/67; PULSE 68; RESP 14; TEMP 36.4; O2SAT 93
[2024-01-09 13:29] VITALS: BP 113/71; PULSE 71; RESP 16; O2SAT 98
[2024-01-09 13:45] VITALS: BP 118/67; PULSE 69; RESP 18; O2SAT 98
== END 2024-01-09 13:45 | disposition home or self-care (01) ==
PROVIDERS: PCP Nurse Practitioner Family; Visit Provider Internal Medicine Gastroenterology
PROC: 0DJ08ZZ Inspection of Upper Intestinal Tract, Via Natural or Artificial Opening Endoscopic (ICD-10-PCS; CPT 43235; principal; 2024-01-09 12:00)
DX: K21.9 Gastro-esophageal reflux disease without esophagitis (principal); R13.10 Dysphagia, unspecified; R10.13 Epigastric pain
CPT/HCPCS: 43239; 43450; J7120

== ENCOUNTER 2024-11-18 12:54 | Emergency (ER) | payer OTHER, SELFPAY ==
[2024-11-18 13:00] VITALS: BP 147/88; BP 153/95; PULSE 75; PULSE 79; RESP 16; RESP 18; TEMP 36.8; O2SAT 95; O2SAT 97; BMI 34.7
--- NOTE | 2024-11-18 13:01 | ECG_ITS ---
APPROVED REPORT Exam: Resting ECG HR:75 bpm ECG Measurements Heart Rate 75 AXES MS 162 P 53 QRSd 102 QRS -12 QT 385 T 73 QTc 414 Conclusion SINUS RHYTHM LOW QRS VOLTAGE IN PRECORDIAL LEADS [QRS DEFLECTION < 1.0 mV IN CHEST LEADS] BORDERLINE ECG Electronically signed by : RADHA PATTERSON, 11/18/2024 15:58:27
--- NOTE | 2024-11-18 13:12 | XR_ITS ---
FINAL REPORT CLINICAL HISTORY: Precordial chest pain COMPARISON: None FINDINGS: The heart size is normal. The mediastinum is normal. The lungs are underinflated. There is no focal infiltrate or edema. There are no pleural effusions. There is no pneumothorax. There is no osseous abnormality. IMPRESSION: No acute cardiopulmonary process Reviewed, Interpreted and Dictated by Spencer Babin MD Transcribed by Che Lechuga Authenticated and [facility]
--- OUTSIDE RECORDS SUMMARY | 2024-11-18 13:12 | XMS_ITS | Data Portability ---
Author Organization [facility] Address [address] [place] [address] Assessment No assessment recorded. Plan of Treatment Reminders Order Date Submit Date Provider Last Modified By Organization Details Last Modified Time Details Appointments None recorded. Lab drug screen, urine 2024 025 [facility], [address] [place] [address], [id number], 5 18:36:51 rapid SARS CoV + SARS CoV 2 Ag, QL IA, respiratory specimen 2024 025 [facility], [address] [place] [address], [id number], 5 18:26:14 rapid flu (A+B) 2024 025 [facility], [address] [place] [address], [phone], 5 18:26:13 HbA1c (hemoglobin A1c), blood 2023 024 [facility], [address] [place] [address], [phone], 4 15:17:32 celiac disease serology panel, serum 2023 024 [facility], [address], Edd[address], [place], [address], 4 11:08:28 food allergen panel, serum 2023 024 [facility], [address], [address], [place], [address], 4 11:08:30 drug screen, urine 2023 024 [facility], [address] [facility], [place], [address], 4 14:26:38 amylase + lipase, serum 2023 024 [facility], [address], [address], [place], [address], 4 11:08:30 CMP, serum or plasma 2023 024 [facility], [address], [address] [address], [place], [address], 4 11:08:29 CBC w/ auto diff 2023 024 [facility], [address], [place] [address], [place], [address], 4 11:08:28 Referral gastroenter ologist referral [address] [facility]: Gi, [address], [place], [address], 4 13:04:46 Procedures None recorded. Surgeries None recorded. Imaging US, gallbladder 2023 024 [facility] ([facility]), [address], [place], [address], 4 11:17:27 Medication Orders Adipex-P 37.5 mg tablet 2024 025 [facility], [facility] [address] [address], [place], [id number], 5 16:38:13 Adipex-P 37.5 mg tablet 2024 025 [facility], [address] [place] [address] Li, [place], [id number], 5 15:01:41 albuterol sulfate HFA 90 mcg/actuati on aerosol inhaler [address] [facility], [address] [place] [address], [place], [id number], 5 18:26:12 benzonatate 100 mg capsule 2024 025 [facility], [address] [place] [address], [place] Bagley, [id number], 5 14:44:26 dexamethaso ne sodium phosphate 4 mg/mL injection solution 2024 025 amber Not available 5 14:38:30 prednisone 20 mg tablet 2024 025 [facility], [address] [place] [address], [place]ON[place] Bagley, [id number], 5 14:44:45 Adipex-P 37.5 mg tablet 2024 025 [facility], [address] [place] [address], [place] Bagley, [id number], 5 18:30:30 Adipex-P 37.5 mg tablet 2023 024 [facility], [address] [place] [address], [place]ON[place] Bagley, [id number], 17:45:04 Patient TargetsNo targets recorded. Patient InstructionsNo instructions recorded. 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 Studi es have demon str- ated that endom ysial IgA antib odies have over 99% speci ficit y for glute n sensi tive enter opath y. Not Available [facility] ([facility]) [address] [place], [address], 07/10/2023 11:08:27 07/05/19 24 07/06/2023 ZAYRA C DISEA SE PANEL immunoglobul in A, qn, serum 189 mg/dL 90-386 Not Available [facility] ([facility]) [address] [place], [address], 07/10/2023 11:08:27 07/05/19 24 07/08/2023 ZAYRA C DISEA SE PANEL endomysial antibody IgA Negati ve negati ve Not Available [facility] ([facility]) [address] [place], [address], 07/10/2023 11:08:27 07/05/19 24 07/06/2023 CBC WITH DIFFE RENTI AL/PL ATELE T WBC 7.2 x10e3 /uL 3.4-10 .8 Not Available [facility] ([facility]) [address] [place], [address], 07/10/2023 11:08:28 07/05/19 24 07/06/2023 CBC WITH DIFFE RENTI AL/PL ATELE T RBC 5.43 x10e6 /uL 4.14-5 .80 Not Available [facility] ([facility]) [address] [facility], [place], [address], 07/10/2023 11:08:28 07/05/19 24 07/06/2023 CBC WITH DIFFE RENTI AL/PL ATELE T hemoglobin 15.3 g/dL 13.0-1 7.7 Not Available [facility] ([facility]) [address] [place], [address], 07/10/2023 11:08:28 07/05/19 24 07/06/2023 CBC WITH DIFFE RENTI AL/PL ATELE T hematocrit 47.0 % 37.5-5 1.0 Not Available [facility] ([facility]) [address] [place], [address], 07/10/2023 11:08:28 07/05/19 24 07/06/2023 CBC WITH DIFFE RENTI AL/PL ATELE T MCV 87 fL 79-97 Not Available [facility] ([facility]) [address] [place], [address], 07/10/2023 11:08:28 07/05/19 24 07/06/2023 CBC WITH DIFFE RENTI AL/PL ATELE T MCH 28.2 pg 26.6-3 3.0 Not Available [facility] ([facility]) [address] [place], [address], 07/10/2023 11:08:28 07/05/19 24 07/06/2023 CBC WITH DIFFE RENTI AL/PL ATELE T MCHC 32.6 g/dL 31.5-3 5.7 Not Available [facility] ([facility]) [address] [place], [address], 07/10/2023 11:08:28 07/05/19 24 07/06/2023 CBC WITH DIFFE RENTI AL/PL ATELE T RDW 13.1 % 11.6-1 5.4 Not Available [facility] ([facility]) [address] [facility], [place], [address], 07/10/2023 11:08:28 07/05/19 24 07/06/2023 CBC WITH DIFFE RENTI AL/PL ATELE T platelets 205 x10e3 /uL 150-45 0 Not Available [facility] ([facility]) [address] [facility], [place], [address], 07/10/2023 11:08:28 07/05/19 24 07/06/2023 CBC WITH DIFFE RENTI AL/PL ATELE T neutrophils 65 % not estab. Not Available [facility] ([facility]) [address] [facility], [place], [address], 07/10/2023 11:08:28 07/05/19 24 07/06/2023 CBC WITH DIFFE RENTI AL/PL ATELE T lymphs 25 % not estab. Not Available [facility] ([facility]) [address] [facility], [place], [address], 07/10/2023 11:08:28 07/05/19 24 07/06/2023 CBC WITH DIFFE RENTI AL/PL ATELE T monocytes 6 % not estab. Not Available [facility] ([facility]) [address] [facility], [place], [address], 07/10/2023 11:08:28 07/05/19 24 07/06/2023 CBC WITH DIFFE RENTI AL/PL ATELE T eos 2 % not estab. Not Available [facility] ([facility]) [address] [facility], [place], [address], 07/10/2023 11:08:28 07/05/19 24 07/06/2023 CBC WITH DIFFE RENTI AL/PL ATELE T basos 1 % not estab. Not Available [facility] ([facility]) [address] [facility], [place], [address], 07/10/2023 11:08:28 07/05/19 24 07/06/2023 CBC WITH DIFFE RENTI AL/PL ATELE T immature cells TIMBER INSPECTOR Not Available [facility] ([facility]) [address] [facility], [place], [address], 07/10/2023 11:08:28 07/05/19 24 07/06/2023 CBC WITH DIFFE RENTI AL/PL ATELE T neutrophils (absolute) 4.7 x10e3 /uL 1.4-7. 0 Not Available [facility] ([facility]) [address] [facility], [place], [address], 07/10/2023 11:08:28 07/05/19 24 07/06/2023 CBC WITH DIFFE RENTI AL/PL ATELE T lymphs (absolute) 1.8 x10e3 /uL 0.7-3. 1 Not Available [facility] ([facility]) [address] [place], [address], 07/10/2023 11:08:28 07/05/19 24 07/06/2023 CBC WITH DIFFE RENTI AL/PL ATELE T monocytes(ab solute) 0.5 x10e3 /uL 0.1-0. 9 Not Available [facility] ([facility]) [address] [place], [address], 07/10/2023 11:08:28 07/05/19 24 07/06/2023 CBC WITH DIFFE RENTI AL/PL ATELE T eos (absolute) 0.2 x10e3 /uL 0.0-0. 4 Not Available [facility] ([facility]) [address] [facility], [place], [address], 07/10/2023 11:08:28 07/05/19 24 07/06/2023 CBC WITH DIFFE RENTI AL/PL ATELE T baso (absolute) 0.1 x10e3 /uL 0.0-0. 2 Not Available [facility] ([facility]) [address] [facility], [place], [address], 07/10/2023 11:08:28 07/05/19 24 07/06/2023 CBC WITH DIFFE RENTI AL/PL ATELE T immature granulocytes 1 % not estab. Not Available [facility] ([facility]) [address] [facility], [place], [address], 07/10/2023 11:08:28 07/05/19 24 07/06/2023 CBC WITH DIFFE RENTI AL/PL ATELE T immature grans (abs) 0.1 x10e3 /uL 0.0-0. 1 Not Available [facility] ([facility]) [address] [facility], [place], [address], 07/10/2023 11:08:28 07/05/19 24 07/06/2023 CBC WITH DIFFE RENTI AL/PL ATELE T NRBC TIMBER INSPECTOR Not Available [facility] ([facility]) [address] [facility], [place], [address], 07/10/2023 11:08:28 07/05/19 24 07/06/2023 CBC WITH DIFFE RENTI AL/PL ATELE T hematology comments: TIMBER INSPECTOR Not Available [facility] ([facility]) [address] [place], [address], 07/10/2023 11:08:28 07/05/19 24 07/06/2023 COMP. METAB OLIC PANEL (14) glucose 111 mg/dL 70-99 above high normal Not Available [facility] ([facility]) [address] [place], [address], 07/10/2023 11:08:29 07/05/19 24 07/06/2023 COMP. METAB OLIC PANEL (14) BUN 15 mg/dL 6-20 Not Available [facility] ([facility]) [address] [place], [address], 07/10/2023 11:08:29 07/05/19 24 07/06/2023 COMP. METAB OLIC PANEL (14) creatinine 1.02 mg/dL 0.76-1 .27 Not Available [facility] ([facility]) [address] [place], [address], 07/10/2023 11:08:29 07/05/19 24 07/06/2023 COMP. METAB OLIC PANEL (14) eGFR 96 mL/mi n/1.7 3 >59 Not Available [facility] ([facility]) [address] [place], [address], 07/10/2023 11:08:29 07/05/19 24 07/06/2023 COMP. METAB OLIC PANEL (14) BUN/creatini ne ratio 15 9-20 Not Available [facility] ([facility]) [address] [place], [address], 07/10/2023 11:08:29 07/05/19 24 07/06/2023 COMP. METAB OLIC PANEL (14) sodium 141 mmol/ L 134-14 4 Not Available [facility] ([facility]) [address] [place], [address], 07/10/2023 11:08:29 07/05/19 24 07/06/2023 COMP. METAB OLIC PANEL (14) potassium 4.1 mmol/ L 3.5-5. 2 Not Available [facility] ([facility]) [address] [place], [address], 07/10/2023 11:08:29 07/05/19 24 07/06/2023 COMP. METAB OLIC PANEL (14) chloride 104 mmol/ L 96-106 Not Available [facility] ([facility]) [address] [place], [address], 07/10/2023 11:08:29 07/05/19 24 07/06/2023 COMP. METAB OLIC PANEL (14) carbon dioxide, total 23 mmol/ L Not Available [facility] ([facility]) [address] [place], [address], 07/10/2023 11:08:29 07/05/19 24 07/06/2023 COMP. METAB OLIC PANEL (14) calcium 9.3 mg/dL 8.7-10 .2 Not Available [facility] ([facility]) [address] [place], [address], 07/10/2023 11:08:29 07/05/19 24 07/06/2023 COMP. METAB OLIC PANEL (14) protein, total 7.0 g/dL 6.0-8. 5 Not Available [facility] ([facility]) [address] [facility], [place], [address], 07/10/2023 11:08:29 07/05/19 24 07/06/2023 COMP. METAB OLIC PANEL (14) albumin 4.5 g/dL 4.1-5. 1 Not Available [facility] ([facility]) [address] [facility], [place], [address], 07/10/2023 11:08:29 07/05/19 24 07/06/2023 COMP. METAB OLIC PANEL (14) globulin, total 2.5 g/dL 1.5-4. 5 Not Available [facility] ([facility]) [address] [place], [address], 07/10/2023 11:08:29 07/05/19 24 07/06/2023 COMP. METAB OLIC PANEL (14) A/G ratio 1.8 1.2-2. 2 Not Available [facility] ([facility]) [address] [facility], [place], [address], 07/10/2023 11:08:29 07/05/19 24 07/06/2023 COMP. METAB OLIC PANEL (14) bilirubin, total 0.4 mg/dL 0.0-1. 2 Not Available [facility] ([facility]) [address] [place], [address], 07/10/2023 11:08:29 07/05/19 24 07/06/2023 COMP. METAB OLIC PANEL (14) alkaline phosphatase 78 IU/L 44-121 Not Available [facility]) [address] [place], [address], 07/10/2023 11:08:29 07/05/19 24 07/06/2023 COMP. METAB OLIC PANEL (14) AST (SGOT) 21 IU/L 0-40 Not Available [facility] ([facility]) [address] [place], [address], 07/10/2023 11:08:29 07/05/19 24 07/06/2023 COMP. METAB OLIC PANEL (14) ALT (SGPT) 36 IU/L 0-44 Not Available [facility] ([facility]) [address] [place], [address], 07/10/2023 11:08:29 07/05/19 24 07/06/2023 PIPE+L IPASE amylase 45 U/L 31-110 Not Available [facility] ([facility]) [address] [place], [address], 07/10/2023 11:08:30 07/05/19 24 07/06/2023 PIPE+L IPASE lipase 19 U/L 13-78 Not Available [facility] ([facility]) [address] [place], [address], 07/10/2023 11:08:30 07/05/19 24 07/06/2023 FOOD ALLER GY PROFI LE class description Commen t Level s of Speci fic IgE Class Descr iptio n of Class ----- ----- ----- ----- ----- -- ----- ----- ----- ----- ----- < 0.10 0 Negat sobia 0.10 - 0.31 0/I Equiv ocal/ Low 0.32 - 0.55 I Low 0.56 - 1.40 II Moder ate 1.41 - 3.90 III High 3.91 - 19.00 IV Very High 19.01 - 100.0 0 V Very High >100. 00 Very High Not Available [facility] ([facility]) [address] [place], [address], 07/10/2023 11:08:30 07/05/19 24 07/10/2023 FOOD ALLER GY PROFI LE V480-ShK egg white <0.10 kU/L class 0 Not Available [facility] ([facility]) [address] [place], [address], 07/10/2023 11:08:30 07/05/19 24 07/10/2023 FOOD ALLER GY PROFI LE Z836-XwI peanut <0.10 kU/L class 0 Not Available [facility] ([facility]) [address] [place], [address], 07/10/2023 11:08:30 07/05/19 24 07/10/2023 FOOD ALLER GY PROFI LE S733-YsP soybean <0.10 kU/L class 0 Not Available [facility] ([facility]) [address] [place], [address], 07/10/2023 11:08:30 07/05/19 24 07/10/2023 FOOD ALLER GY PROFI LE D778-UiL milk <0.10 kU/L class 0 Not Available [facility] ([facility]) [address] [place], [address], 07/10/2023 11:08:30 07/05/19 24 07/10/2023 FOOD ALLER GY PROFI LE T755-TdU clam <0.10 kU/L class 0 Not Available [facility] ([facility]) [address] [place], [address], 07/10/2023 11:08:30 07/05/19 24 07/10/2023 FOOD ALLER GY PROFI LE T775-DeQ shrimp <0.10 kU/L class 0 Not Available [facility] ([facility]) [address] [place], [address], 07/10/2023 11:08:30 07/05/19 24 07/10/2023 FOOD ALLER GY PROFI LE I751-JhI walnut <0.10 kU/L class 0 Not Available [facility] ([facility]) [address] [place], [address], 07/10/2023 11:08:30 07/05/19 24 07/10/2023 FOOD ALLER GY PROFI LE J214-XqY codfish <0.10 kU/L class 0 Not Available [facility] ([facility]) [address] [place], [address], 07/10/2023 11:08:30 07/05/19 24 07/10/2023 FOOD ALLER GY PROFI LE U923-QxP scallop <0.10 kU/L class 0 Not Available [facility] ([facility]) [address] [place], [address], 07/10/2023 11:08:30 07/05/19 24 07/10/2023 FOOD ALLER GY PROFI LE Y885-YmW wheat <0.10 kU/L class 0 Not Available [facility] ([facility]) [address] [place], [address], 07/10/2023 11:08:30 07/05/19 24 07/10/2023 FOOD ALLER GY PROFI LE V552-VgJ corn <0.10 kU/L class 0 Not Available [facility] ([facility]) [address] [facility], [place], [address], 07/10/2023 11:08:30 07/05/19 24 07/10/2023 FOOD ALLER GY PROFI LE J403-HyI sesame seed <0.10 kU/L class 0 Not Available [facility] ([facility]) [address] [facility], [place], [address], 07/10/2023 11:08:30 07/05/19 24 07/05/2023 drug scree n, urine THC negati ve Not Available [address], [address], 07/05/2023 09:36:17 07/05/19 24 07/05/2023 drug scree n, urine TCA negati ve Not Available [address], [address], 07/05/2023 09:36:17 07/05/19 24 07/05/2023 drug scree n, urine BAR negati ve Not Available [address], [address], 07/05/2023 09:36:17 07/05/19 24 07/05/2023 drug scree n, urine BZO negati ve Not Available [address], [address], 07/05/2023 09:36:17 07/05/19 24 07/05/2023 drug scree n, urine MTD negati ve Not Available [address], [address], 07/05/2023 09:36:17 07/05/19 24 07/05/2023 drug scree n, urine AMP negati ve Not Available [facility] [address], [address], 07/05/2023 09:36:17 07/05/19 24 07/05/2023 drug scree n, urine MOP negati ve Not Available [address], [address], 07/05/2023 09:36:17 07/05/19 24 07/05/2023 drug scree n, urine OXY negati ve Not Available [address], [address], 07/05/2023 09:36:17 07/05/19 24 07/05/2023 drug scree n, urine MDMA negati ve Not Available [address], [address], 07/05/2023 09:36:17 07/05/19 24 07/05/2023 drug scree n, urine ROSA M negati ve Not Available [address], [address], 07/05/2023 09:36:17 07/05/19 24 07/05/2023 drug scree n, urine PCP negati ve Not Available [address], [address], 07/05/2023 09:36:17 07/05/19 24 07/05/2023 drug scree n, urine MET negati ve Not Available [address], [address], 07/05/2023 09:36:17 07/15/19 24 07/15/2023 HbA1c (hemo globi n A1c), blood HbA1C 5.2 % Not Available [address], [address], 07/11/2023 08:27:46 07/15/19 24 07/15/2023 HbA1c (hemo globi n A1c), blood HbA1C 5.2 % Not Available [address], [address], 07/15/2023 15:01:19 05/26/19 25 05/26/2024 drug scree n, urine THC negati ve Not Available [address], [address], 05/26/2024 18:27:30 05/26/19 25 05/26/2024 drug scree n, urine TCA negati ve Not Available [address], [address], 05/26/2024 18:27:30 05/26/19 25 05/26/2024 drug scree n, urine BAR negati ve Not Available [address], [address], 05/26/2024 18:27:30 05/26/19 25 05/26/2024 drug scree n, urine BZO negati ve Not Available [address], [address], 05/26/2024 18:27:30 05/26/19 25 05/26/2024 drug scree n, urine MTD negati ve Not Available [address], [address], 05/26/2024 18:27:30 05/26/19 25 05/26/2024 drug scree n, urine AMP negati ve Not Available [address], [address], 05/26/2024 18:27:30 05/26/19 25 05/26/2024 drug scree n, urine MOP negati ve Not Available [address], [address], 05/26/2024 18:27:30 05/26/19 25 05/26/2024 drug scree n, urine OXY negati ve Not Available [address], [address], 05/26/2024 18:27:30 05/26/19 25 05/26/2024 drug scree n, urine MDMA negati ve Not Available [address], [address], 05/26/2024 18:27:30 05/26/19 25 05/26/2024 drug scree n, urine ROSA M negati ve Not Available [address], [address], 05/26/2024 18:27:30 05/26/19 25 05/26/2024 drug scree n, urine PCP negati ve Not Available [address], [address], 05/26/2024 18:27:30 05/26/19 25 05/26/2024 drug scree n, urine MET negati ve Not Available [address], [address], 05/26/2024 18:27:30 05/26/19 25 05/26/2024 rapid flu (A+B) Flu negati ve Not Available [address], [address], 05/26/2024 17:46:10 05/26/19 25 05/26/2024 rapid flu (A+B) Type Both A & B Not Available [address], [place], [address], 05/26/2024 17:46:10 05/26/19 25 05/26/2024 rapid SARS CoV + SARS CoV 2 Ag, QL IA, respi rator y speci men SARS CoV antigen Invali d Not Available [address], [place], [address], 05/26/2024 17:46:05 07/10/19 24 07/10/2023 US, ramona granado No observ ation record ed. [id number], [place], [address], 07/11/2023 09:24:20 07/26/19 24 07/26/2023 NM, hepat obili angeli scan, w/ CCK No observ ation [place]. [place] [id number], [place], [address], 07/30/2023 11:36:07 07/26/19 24 07/26/2023 CT, abdom en + pelvi s, w/o contr ast No observ ation record ed. [place] [id number], [place], [address], 07/30/2023 08:32:27 08/08/19 24 08/07/2023 CT, abdom en + pelvi s, w/ contr ast No observ ation record ed. [place] [id number] [facility], [place], [address], 08/08/2023 10:26:27 Result Notes None recorded. Problems No Known Problems Procedures Surgical History Date Name Laterality Status Provider Name and Address Organization Details Recorded Time Knee Surgery completed Charlotte SHIPMAN - [facility] 12/17/2022 16:14:41 Back Surgery completed Charlotte Moser [place] - [facility] 12/17/2022 16:15:24 Imaging Results None recorded. Procedure Notes None recorded. Medical Equipment None Reported. Allergies No known drug allergies Medications Name Sig Start Date Stop Date Status Note LastModified by Organization Details LastModified Time amoxicill in 500 mg capsule 07/16 completed Not Available Not Available Not Available prednison e 10 mg tablet Take 1 tablet every day by oral route. 05/26 completed Not Available Not Available Not Available triazolam 0.25 mg tablet 12/17 completed Not Available Not Available Not Available ibuprofen 800 mg tablet active Not Available Not Available Not Available famotidin e 40 mg tablet TAKE ONE TABLET BY MOUTH AT BEDTIME active Not Available Not Available No t Available prednison e 20 mg tablet Take 1 tablet twice a day by oral route for 5 days. 07/16 completed Not Available Not Available Not Available phentermi ne 37.5 mg tablet TAKE 1 TABLET BY MOUTH ONCE A DAY active Not Available Not Available No t Available omeprazol e 40 mg capsule,d elayed release TAKE ONE CAPSULE BY MOUTH ONCE A DAY active Not Available Not Available No t Available famotidin e 20 mg tablet 07/16 completed Not Available Not Available Not Available amitripty line 25 mg tablet take 1 tablet (25 mg) by oral route 3 times per day 12/17 completed amitript yline Oral Tablet 25 mg;Recor ded Status: Recorded on: 05/29/19 12 11:11AM; User: iris Islas tion: Depressi on - (4510 ) Not Available Not Available Not Available benzonata te 100 mg capsule Take 1 capsule twice a day by oral route for 5 days. 07/16 completed Not Available Not Available Not Available omeprazol e 20 mg capsule,d elayed release 07/16 completed Not Available Not Available Not Available dexametha sone sodium phosphate 4 mg/mL injection solution Inject 1 mL twice a day by intramus cular route. 07/16 completed Not Available Not Available Not Available Aspir-81 mg tablet,de layed release 12/17 completed Aspir-81 Oral Tablet, Delayed Release (E.C.) 81 mg;Recor ded Status: Recorded on: 05/29/19 12 11:11AM; User: iris granado Not Available Not Available Not Available albuterol sulfate HFA 90 mcg/actua tion aerosol inhaler Inhale 1 puff every 4 hours by inhalati on route as needed. active Not Available Not Available No t Available dicyclomi ne 10 mg capsule Take 1 capsule 3 times a day by oral route as needed for 14 days, for abd cramps. 05/26 completed Not Available Not Available Not Available peg 3350-elec trolytes 236 gram-22.7 4 gram-6.74 gram-5.86 gram solution 05/26 completed Not Available Not Available Not Available Vitals Date Recorded Body height Body mass index (BMI) Body weight Heart rate Oxygen saturation Oxygen saturation in Arterial blood by Pulse oximetry Respiratory rate Systolic And Diastolic Provider Name and Address Organization Details Last Updated DateTime 187.96 cm 38 kg/m2 821666. 34 g 90 /min 96 % 96 % 18 /min 114/82 mm[Hg] Charlotte Moser MD - [facility] 5 17:44:48 Date Recorded Body height Body mass index (BMI) Body weight Body temperature Heart rate Oxygen saturation Oxygen saturation in Arterial blood by Pulse oximetry Respiratory rate Systolic And Diastolic Provider Name and Address Organization Details Last Updated DateTime 4 187.96 cm 36.7 kg/m2 003275. 12 g 98 [degF] 86 /min 97 % 97 % 18 /min 118/80 mm[Hg] Charlotte Moser MD - [facility] 4 09:01:25 Date Recorded Body height Provider Name an d Address Organization Details Last Updated DateTime 07/15/2023 187.96 cm Charlotte Moser [facility] 0 07/15/2023 14:51:27 Date Recorded Body height Body mass index (BMI) Body weight Heart rate Oxygen saturation Oxygen saturation in Arterial blood by Pulse oximetry Respiratory rate Systolic And Diastolic Provider Name and Address Organization Details Last Updated DateTime 5 187.96 cm 36.7 kg/m2 757016. 42 g 87 /min 97 % 97 % 18 /min 124/82 mm[Hg] Charlotte Moser [place] - [facility] 5 14:44:07 Date Recorded Body height Body mass index (BMI) Body weight Body temperature Heart rate Respiratory rate Oxygen saturation Oxygen saturation in Arterial blood by Pulse oximetry Systolic And Diastolic Provider Name and Address Organization Details Last Updated DateTime 5 187.96 cm 36.2 kg/m2 863984. 05 g 97.9 [degF] 76 /min 18 /min 97 % 97 % 120/78 mm[Hg] Valencia Mishrali [place] - [facility] 5 16:04:28 Social History Question Answer Notes LastModified by Organizat ion Details LastModified Time Tobacco Smoking Status Never Smoker Charlotte Moser jan, [place] - [facility] 12/17/2022 16:06:42 Do You Have An Advance Directive? No Information n ot available 12/17/2022 Are You Blind Or Do You Have Difficulty Seeing? No Information n ot available 12/17/2022 Is Blood Transfusion Acceptable In An Emergency? Yes Information not available 12/17/2022 What Is Your Level Of Caffeine Consumption? Moderate Information not available 12/17/2022 How Much Tobacco Do You Chew? None Information not available 12/17/2022 In The 14 Days Before Symptom Onset, Have You Had Close Contact With A Laboratory-confirm ed COVID-19 While That Case Was Ill? No Information n ot available 12/17/2022 In The 14 Days Before Symptom Onset, Have You Had Close Contact With A Person Who Is Under Investigation For COVID-19 While That Person Was Ill? No Information not available 12/17/2022 Have You Been To An Area Known To Be High Risk For COVID-19? No Information not available 12/17/2022 Are You Deaf Or Do You Have Serious Difficulty Hearing? No Information not available 12/17/2022 What Type Of Diet Are You Following? REGULAR Information n ot available 12/17/2022 Which Illicit Or Recreational Drugs Have You Used? None Information not available 12/17/2022 Have You Processed Blood Or Body Fluids From An Ebola Virus Disease Patient Without Appropriate PPE? No Information not available 12/17/2022 Do You Reside In Or Have You Traveled To An Area Where Ebola Virus Transmission Is Active? No Information not available 12/17/2022 What Is The Highest Grade Or Level Of School You Have Completed Or The Highest Degree You Have Received? [id number] Information not available 12/17/2022 Have You Recently Or Are You Planning To Travel To An Area With Zika Virus? No Information not available 12/17/2022 How Many Years Have You Used Illicit Or Recreational Drugs? 0 Information not available 12/17/2022 What Was The Date Of Your Most Recent Tobacco Screening? 05/26/2024 Information not available 05/26/2024 Do You Use Protection Against STDs? No Information not available 12/17/2022 What Is Your Relationship Status? Information not available 12/17/2022 Do You Use Your Seat Belt Or Car Seat Routinely? Yes Information not available 12/17/2022 Are You Sexually Active? Yes Information not available 12/17/2022 Do You Have Smoke And Carbon Monoxide Detectors In Your Home? Yes Information not available 12/17/2022 Are You Passively Exposed To Smoke? No Information no t available 12/17/2022 Do You Use Sunscreen Routinely? No Information not available 12/17/2022 Has Tobacco Cessation Counseling Been Provided? No Information not available 12/17/2022 Do You Have Difficulty Walking Or Climbing Stairs? No Information not available 12/17/2022 Sex: Male Functional Status Question Answer Note LastModified by Organizat ion Details LastModified Time Do you use any illicit or recreational drugs? No Information not available 12/17/2022 Do you or have you ever used any other forms of tobacco or nicotine? No Information not available 12/17/2022 What is your level of alcohol consumption? None Information not available 12/17/2022 Do you or have you ever used smokeless tobacco? Never used smokeless tobacco Information not available 12/17/2022 Are you currently employed? Yes Information not available 12/17/2022 Do you have transportation difficulties? No Information not available 12/17/2022 Do you have difficulty doing errands alone? No Information not available 12/17/2022 Are you able to care for yourself? 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 No Information not available 12/17/2022 Do you or have you ever used e-cigarettes or vape? Never used electronic cigarettes Information not available 12/17/2022 What is your exercise level? Occasional Information not available 12/17/2022 Mental Status Question Answer Note LastModified by Organizat ion Details LastModified Time Do you feel stressed (tense, restless, nervous, or anxious, or unable to sleep at night)? [id number] Information not available 12/17/2022 Do you have difficulty concentrating, remembering or making decisions? No Information no t available 12/17/2022 Family History Relationship Description Onset Age of this Age Resolved Age Notes LastModified by Organization Details LastModified Time Mother Hypertensive disorder cbuckler Not available 2022 16:06:34 Father Malignant tumor of colon cbuckler Not available 2022 16:06:34 Father Obesity cbuckler Not available 12/17/2022 16:06:34 Father Heart disease cbuckler Not available 2022 16:06:34 Father Diabetes mellitus cbuckler Not available 2022 16:06:34 Medical History Condition Response Pancreatitis N Coronary Artery Disease N Other N Gout N Atrial Fibrillation N congenital heart disease N Kidney Stones N Blood Diseases N Hyperthyroidism N Rheumatoid arthritis N Blood Transfusion N Erectile Dysfunction N amputation N Colonoscopy N Skin Lesions N Depression N COPD N Pneumonia N Incontinence N Murmur N Edema N Alzheimer's Disease N Migraine Headaches N Tobacco Abuse N Anxiety Disorder N Muscle, Joint, or Bone Problems N Hemorrhoids N Obesity N Vision or Eye Problems N Restless Leg Syndrome N Arthritis N Polyps N Infertility N Mental Disorder N Carpal Tunnel N Acid Reflux (GERD) N Cancer N Varicosities N Stroke N Tendonitis N Crohn's Disease N Hypercholesterolemia N Skin Cancer N Headaches N Fibromyalgia N Irritable Bowel Syndrome N Anal Fissure N Kidney Disease N Heart Problems N Ear or Hearing Problems N Hospitalizations N Gallstones N Kidney or Bladder Problems N Goiter N Acne N Skin Problems N Eating Disorder N Mcrae's Esophagus N Hypertriglyceridemia N MRSA exposure N Constipation N Embolism N Vitamin B12 Deficiency N Deviated Septum N Tuberculosis N AIDS/HIV N Myocardial Infarction N Asthma N Mitral Valve Disorders N Vertigo N Hepatitis N Thyroid Cancer N Neuropathy N Pulmonary Embolism N History of DVT N Herniated Disc N COVID 19 N Chronic Ear Infections N Chicken Pox N Autism Spectrum Disorder (ASD) N Von Willebrands Disease N Thrombophilias N Breast Cancer N Hernia N Plantar Fasciitis N Hospital Admission Other Than N Lung Disease N Hypothyroidism N Defects or Inherited Disease N Developmental or Behavioral Disorders N Breast Problem N Difficulty Swallowing N Ovarian Cyst N Anesthesia Complications N Testosterone Deficiency N Meniere's disease N Head Injury/Concussion N Interstitial Cystitis N Congenital Anomalies N Hypoglycemia N Blood clot N Vitamin D Deficiency N Cellulitis N Endometriosis N Bladder or Kidney Problems N Fracture N Colorectal Cancer N Liver Disease N Schizophrenia N Panic Disorder N Concussion N Spina Bifida N Allergies/Hayfever N Osteoarthritis N Parkinson's Disease N Disc Protrusion N STI N Esophagitis N Angina N Thyroid Problems N GI Problems N ADD/ADHD N Anemia N Multiple Sclerosis N Abnormal PAP N Lumbago N Mental Illness N Psychiatric Illness N Ovarian Cancer N Diabetes N Bedwetting N Degenerative Disc Disease N Seizures/Epilepsy N Congestive Heart Failure (CHF) N Syncope N Insomnia N Hyperlipidemia N Eczema N Abuse/Domestic Violence N Attention Deficient Disorder N Dementia N Diverticulitis N Ulcerative colitis N Cerebrovascular Disease N Depression N Guillain-[place] N Sleep Apnea N Aneurysm N Bronchitis N Heart Disease N Suicidal Ideation N Pre-Eclampsia N Hypertension N Osteoporosis N Immunizations Vaccine Type Date Status Note Provider Nam e and Address Organization Details Recorded Time MMR 6 completed Charlotte Moser null, [place] - [facility] 07/05/2023 08:56:01 Td (adult), 2 Lf tetanus toxoid, preservative free, adsorbed 1 completed Charlotte Moser null, [place] - [facility] 07/05/2023 08:56:01 Hep B, adolescent or pediatric 1 completed Charlotte Moser null, [place] - [facility] 07/05/2023 08:56:01 Hep B, adolescent or pediatric 1 completed Charlotte Moser null, [place] - [facility] 07/05/2023 08:56:01 Hep B, adolescent or pediatric 1 completed Charlotte BerumenRAMONITA pena - [facility] 07/05/2023 08:56:01 Past Encounters Encounter ID Performer Location Encounter Start Date Encounter Closed Date Diagnosis/Indication Diagnosis SNOMED-CT Code Diagnosis ICD10 Code Diagnosis Note [id number] Klaudia Post [address] [address] 12/17/2022 15:43:30 12/17/2022 16:37:46 Long-term drug therapy 479449577 Z79.899 Body mass index 30+ - obesity 575725558 Z68.36 [id number] Klaudia Post [address] [address] 07/05/2023 08:43:12 07/05/2023 09:53:41 Body mass index 30+ - obesity 514972590 Z68.36 Pt compliant with plan of careKasper reviewedme dication compliance discussedL ast uds: 4Control substance agreement on fileadipex consent on file Long-term drug therapy 828295806 Z79.899 Right uppe r quadrant pain 785643537 R10.11 Diarrhea 34485698 R19.7 Family his tory of cancer of colon 653517730 Z80.0 [id number] Klaudia Post [address] [address] 07/15/2023 14:50:35 07/15/2023 15:01:25 Hyperglycemia 98862921 R73.9 [id number] Klaudia Post [address] [address] 05/26/2024 17:35:25 05/26/2024 18:31:59 Acute bronchitis 94064111 J20.9 no sign of a bacterial infection. likely viral. viruses can take 7-14 days to run their course. nasal saline and bulb syringe to remove nasal drainage to help with congestion . monitor temp. Tylenol or Motrin as needed for pain or fever. encourage fluids, water, Gatorade, power aide, Pedialyte if infant/tod dler/child warm salt water gargles warm fluids sore throat lozenges sleep elevated humidifier /vaporizer follow up immediatel y for new or worsening symptoms or no noticeable improvemen t over the next 48-72 hours Body mass index 30+ - obesity 095671098 Z68.36 Pt compliant with plan of careKasper reviewedme dication compliance discussedL ast uds: 5Control substance agreement on fileadipex consent on filewait to finish steroids before starting on med Long-term current use of drug therapy 928857993 Z79.409 [id number] Klaudia Post APRN [address] [address] 07/16/2024 14:30:30 07/16/2024 15:01:56 Body mass index 30+ - obesity 499343959 Z68.36 Pt compliant with plan of careKasper reviewedme dication compliance discussedL ast uds: 5Control substance agreement on fileadipex consent on filewait to finish steroids before starting on med [id number] Klaudia Post APRN [address] [address] 08/31/2024 15:45:46 08/31/2024 16:13:57 Body mass index 30+ - obesity 663744617 Z68.36 Pt compliant with plan of careKasper reviewedme dication compliance discussedL ast uds: 5Control substance agreement on fileadipex consent on filewait to finish steroids before starting on med Health Concerns Section Related Observation LastModified by Organization Detai ls LastModified Time None Recorded Concern Status LastModified by Organization Details LastModified Time None Recorded Advance Directives Directive N: Payers Insurance Date Sequence Insurance Name Policy Number Policy Alves Covered Member ID Alves Member ID Guarantor Name 08/31/2024 1 [facility] Luis Miguel Rose [id number] Jose Rose 10/08/2024 1 [employer] [id number] Jose Rose [id number] Jose Rose Notes Date Note Type Note Provider Name and Address Organization Details Recorded Time 07/05/2023 text/html 37 yr old male presents for weight loss. He also complains of gallbladder issue and diarrhea.pt states he has been on adipex in the past and tolerated it well. pt states he has been dieting but not had any success.pt states he has rt upper quad pain that comes and goes. greasy foods make it worse. Klaudia Post APRN [address], [place], [address], [place] - [facility] 07/05/2023 09:40:36 07/15/2023 text/html 37 yr old male presents for an a1c check due to abnormal glucose level on labs. Charlotte Moser [facility], [place] - [facility] 07/15/2023 16:44:36 05/26/2024 text/html 38 yr old male presents for cough, wheezing and congestion for two days.pt states he also would like to restart adipex. reports he has been trying diet and exercise and has not been successful. pt states he did well on adipex Klaudia Post APRN [address], [place], [address], [place] - [facility] 05/26/2024 18:29:56 07/16/2024 text/html 38 yr old male presents for a weight loss follow up, down 10 lbs., pt states tolerating med well with diet and exercise Klaudia Post APRN [address], [place], [address], [place] - [facility] 07/16/2024 15:01:18 08/31/2024 text/html 38 year old male who presents to the office today for a follow up onweight loss- at today's appt he weighs, was in steel toe shoes, last visit he was in tennis shoesat his last appt on 07-16-24 he weighed 286 lbs. Klaudia Post APRN [address], [place], [address], [place] - [facility] 08/31/2024 16:24:17
--- OUTSIDE RECORDS SUMMARY | 2024-11-18 13:12 | XMS_ITS | Clinical Summary ---
Author Organization Healthcare Address [address] [place] [address] Care Team Providers Care Apprentice Cosmetologist Name Role Phone Unavailable Primary Care Provider Unavailabl e Social History Tobacco Use Types Packs/Day Years Used Date Smoking Tobacco: Never Alcohol Use Standard Drinks/Week Comments No 0 (1 standard drink = 0.6 oz pur e alcohol) Sex and Gender Information Value Date Recorded Sex Assigned at Not on file Legal Sex Male 7:50 PM EDT Gender Identity Not on file Sexual Orientation Not on file Last Filed Vital Signs Vital Sign Reading Time Taken Comments Blood Pressure 118/80 09/11/2017 8:52 AM EDT Pulse - - Temperature - - Respiratory Rate - - Oxygen Saturation - - Inhaled Oxygen Concentration - - Weight 117 kg (257 lb 15 oz) 09/11/2017 8:52 AM EDT Height 181.6 cm (5' 11.5 ) 09/11/2017 8:52 AM ED T Body Mass Index 35.47 09/11/2017 8:52 AM EDT Plan of Treatment Not on file
--- NOTE | 2024-11-18 13:13 | ED_ITS ---
<Statement entered by Rory Sandy MD - 11/18/24 15:52> I was consulted by the FABRIZIO, and we discussed the complexity of the problems being addressed. I approved the treatment and management plan for this patient's care in the emergency department, thus performing a substantive portion of the medical decision making. D-dimer excludes pulmonary embolism and low risk aortic dissection. Rory Sandy MD Discharge Plan Disposition Patient Disposition: Home, Self-Care Condition: Good Prescriptions Prescriptions: No Action omeprazole 40 mg capsule,delayed release(DR/EC) 40 mg PO DAILY Qty: 90 3RF famotidine 40 mg tablet 40 mg PO HS Qty: 90 3RF Referrals Follow up/Referrals: Klaudia Post APRN [Primary Care Provider, Medical] - See instructions Activity Restrictions/Add. Instructions Additional Instructions/Restrictions: Please return to the emergency department with any worsening signs or symptoms. Please continue to follow-up with your family doctor for routine blood work and checkups. Clinical Impressions Clinical Impression: Chest pain Instructions Patient Instructions: DI for Atypical Chest Pain Print Language Print Language: Divehi Discharge ED Provider: Rory Sandy HPI <HUANG Heaton - Last Filed: 11/18/24 15:10> General Chief Complaint: Chest Pain Stated Complaint: Chest Pain Time Seen by Provider: 11/18/24 13:09 Mode of Arrival: Ambulatory Source of Information: Patient Description of Symptoms (Recalled from ER Triage Doc. by RN): Patient states he has had intermittent pressure in the center of his chest for the last week, is not currently hurting. Denies any past cardiac problems. History of Present Illness HPI narrative: 39-year-old male presents emergency department accompanied by his , for intermittent chest pain that waxes and wanes for the last 2 days, maximum was a 2 out of 10, currently a 0 out of 10, it is located substernally, with some radiation to the shoulder, patient while he was driving , today had an episode of the pain, describes it as a dull ache, that radiated down his left arm with some numbness and tingling, and associated shortness of breath, patient has any fever chills cough congestion, denies abdominal pain, no nausea no vomiting no constipation no diarrhea, no urinary type symptomatology, no hematuria, no hematemesis, no hemoptysis, hematochezia, patient also does complain of some fatigue and tiredness over the last several days. Patient is a non-smoker, denies any alcohol or drug use, other past medical history consistent with GERD, colon polyps that were benign, last colonoscopy was 2023, with a family history of colon malignancy, history of fatty liver disease, initial triage vitals are unremarkable. Related Data Previous Rx's ?Medication ?Instructions ?Recorded famotidine 40 mg tablet 40 mg PO HS #90 tabs 4 omeprazole 40 mg capsule,delayed 40 mg PO DAILY #90 ca ps 01/09/24 release Allergies Allergy/AdvReac Type Severity Reaction Status Date / Time No Known Allergies Allergy Verified 11/18/24 13:07 [facility] <HUANG Heaton - Last Filed: 11/18/24 15:10> [facility] Disclaimer: The information contained in this section may have been updated after the patient was seen, as this information can be updated by other users. Medical History Vomiting Melena Nausea Vitamin D deficiency (~08/29/17) Surgical History H/O right knee surgery History of back surgery Family History Other Colon cancer Family history of myocardial infarction Family history of ulcerative colitis Social History Smoking Status: Never smoker alcohol intake: never substance use type: denies use current occupational status: employed Travel in the last 8 weeks?: None household members: spouse and children housing: house Have you lived/traveled outside [place] in past 30 days?: No Contact w/someone who lives/traveled outside US past 30 days?: No Exposure to someone with infectious disease in past 14 days?: No Do you have a fever (greater than 100.4 F or 38 C)?: No Have you tested positive for COVID-19?: No Exposed to someone with COVID-19 in past 14 days?: No Do you have a sore throat?: No Do you have a cough?: No Do you have any weakness?: No Do you have any diarrhea?: No Are you experiencing any unusual bleeding?: No Do you have any muscle aches/pain?: No Do you have any abdominal pain?: No Are you experiencing loss of taste or smell?: No Other Medical History Have you received the Flu Vaccine for this season: No Have you received the Pneumonia Vaccine: No <HUANG Heaton - Last Filed: 11/18/24 15:10> ROS Obtained: Yes All systems reviewed & no additional complaints except as documented Physical Exam <HUANG Heaton - Last Filed: 11/18/24 15:10> General General appearance: alert and in no apparent distress Head Head exam: atraumatic and normocephalic Eye Eye exam: Present PERRL and EOMI ENT ENT exam: Present mucous membranes moist Neck Neck exam: Present normal inspection Chest Chest inspection: Present normal inspection and symmetric chest wall rise Respiratory Respiratory exam: Present normal lung sounds bilaterally; Absent respiratory distress Cardiovascular Cardiovascular exam: Present regular rate and normal rhythm Abdominal Exam Abdominal exam: Present soft; Absent tenderness, guarding, rebound or rigidity Extremities Exam Extremities exam: Present normal inspection Neurological Exam Neurological exam: Present alert and oriented X3 Psychiatric Psychiatric exam: Present normal affect Skin Skin exam: Present warm and dry HEART Score <HUANG Heaton - Last Filed: 11/18/24 15:10> HEART Score HEART Score assessment performed?: Yes History (anamnesis): Slightly suspicious ECG: Normal Age: <45 years Risk factors: 1-2 risk factors Troponin: </= normal limit HEART Score: 1 Critical Care <HUANG Heaton - Last Filed: 11/18/24 15:10> Critical Care Time Critical Care Time: No Medical Decision Making <HUANG Heaton - Last Filed: 11/18/24 15:10> Medical Records Medical records reviewed: Yes I reviewed the patient's medical records. Saman Inquiry Pt receiving controlled substance: No Saman was queried for this patient: No Vital Signs Vital Signs: 11/18/24 13:00 11/18/24 13:00 11/18/24 13:31 Temperature 98.3 F Temperature Source Oral Pulse Rate 79 73 Pulse Rate [Right Brachial] 75 Respiratory Rate 16 18 18 Blood Pressure 153/95 H 123/79 Blood Pressure [Right Arm] 147/88 H Blood Pressure Mean 103 93 Blood Pressure Mean [Right Arm] 107 Blood Pressure Source [Right Arm] Automatic Cuff Blood Pressure Position [Right Arm] Sitting 02 Sat by Pulse Oximetry 95 97 96 Oxygen Delivery Method Room Air 11/18/24 14:00 11/18/24 14:30 Temperature Temperature Source Pulse Rate 60 63 Pulse Rate [Right Brachial] Respiratory Rate 15 15 Blood Pressure 123/81 120/81 Blood Pressure [Right Arm] Blood Pressure Mean 88 88 Blood Pressure Mean [Right Arm] Blood Pressure Source [Right Arm] Blood Pressure Position [Right Arm] 02 Sat by Pulse Oximetry 99 98 Oxygen Delivery Method Lab Data Lab results reviewed: Yes I reviewed the patient's lab results. Labs: Lab Results 11/18/24 13:01: HCV Ab VIANEY w/Rflx PCR Qn Negative, HIV Ag/Ab Combo Qual Negative 11/18/24 13:07: WBC 9.4, RBC 5.13, Hgb 14.6, Hct 42.9, MCV 83.6, MCH 28.5, MCHC 34.0, RDW 12.7, Plt Count 208, MPV 11.4 H, Neut % (Auto) 65.2, Lymph % (Auto) 25.3, [place] % (Auto) 7.3, Eos % (Auto) 1.5, Baso % (Auto) 0.5, Neut # (Auto) 6.1, Lymph # (Auto) 2.4, [place] # (Auto) 0.7, Eos # (Auto) 0.1, Baso # (Auto) 0.1, PT 10.3, INR 0.92, Sodium 138, Potassium 4.0, Chloride 101, Carbon Dioxide 28, Anion Gap 13.0, BUN 17, Creatinine 1.00, Estimated Creat Clear 170, Estimated GFR 83, Est GFR ( Amer) 100, Glucose 98, Calcium 8.7, Total Bilirubin 0.4, AST 39, ALT 43, Alkaline Phosphatase 79, Total Creatine Kinase 188 H, Troponin I < 0.01, NT-Pro-B Natriuret Pep < 20.0, Total Protein 7.9, Albumin 4.6, Globulin 3.3 H, Albumin/Globulin Ratio 1.4 11/18/24 13:07 11/18/24 13:07 Response Orders (Tests/Meds): ORDERS Category Date Time Status XR chest portable Stat Exams 11/18/24 13:12 Completed CK [Creatine Kinase] Stat Lab 11/18/24 13:07 Completed Complete Blood Count Auto Diff Stat Lab 11/18/24 13:07 Completed Comprehensive Metabolic Panel Stat Lab 11/18/24 13:07 Completed D-Dimer Stat Lab 11/18/24 13:07 Stop Req HIV Combo Stat Lab 11/18/24 13:01 Completed Hepatitis C Ab Qual. W/ RFX Stat Lab 11/18/24 13:01 Completed NT Pro Brain Natriuretic Pep. Stat Lab 11/18/24 13:07 Completed PT INR [Prothrombin Time INR] Stat Lab 11/18/24 13:07 Completed Troponin I Q3H Lab 11/18/24 16:15 Ordered Troponin I Q3H Lab 11/18/24 19:15 Ordered Troponin I Stat Lab 11/18/24 13:07 Completed MDM Narrative Medical Decision Narrative: 39-year-old male presents emergency department with chest pain that is waxed and waned for the last several days,, differential diagnosis to include but not limited to, pneumothorax, PE, pneumonia, costochondritis, other musculoskeletal chest pain, ACS, cardiac arrhythmia, electrolyte disturbance, gastritis, GERD, PUD among others. I discussed this patient's case with the attending physician Dr. Sandy Will obtain CBC, CMP, D-dimer, CK, troponin, proBNP, coags, EKG, chest x-ray CBC unremarkable, coags within normal limits. CMP is unremarkable with the exception of mildly elevated CK at 188. proBNP within normal limits Troponin proBNP within normal limits I reviewed the patient's chest x-ray along the corresponding radiologic report, no acute cardiopulmonary process. I discussed all results with the patient family bedside approximate 3 PM, patient would like to be discharged home to self-care, as he is currently asymptomatic, I called laboratory at approximately 3:05 PM, patient's D-dimer is still pending, microbiology laboratory manager told me that they will have to file a incident report , as the D-dimer machine is down, and D-dimer will have quite some time to resulted, I discussed this with the patient and family the bedside, shared decision-making was utilized, we will call patient with result if result is actionable, patient was all understanding of pending laboratory study,patient would still like to be discharged home to self-care patient is currently asymptomatic, currently no chest pain, ruled out ACS, as first troponin is negative, patient symptomatology is been ongoing for the last 48 hours waxing and waning, chest pain-free currently, patient has heart score of 1, could be some underlying AUR[place]A, less likely to be unstable angina, patient will need to follow-up with his PCP, for routine laboratory studies, patient was given strict ED return precautions, patient family voiced understanding agree with current treatment plan/discharge plan. <Rory Sandy MD - Last Filed: 11/18/24 13:24> Vital Signs Vital Signs: 11/18/24 13:00 11/18/24 13:00 11/18/24 13:31 Temperature 98.3 F Temperature Source Oral Pulse Rate 79 73 Pulse Rate [Right Brachial] 75 Respiratory Rate 16 18 18 Blood Pressure 153/95 H 123/79 Blood Pressure [Right Arm] 147/88 H Blood Pressure Mean 103 93 Blood Pressure Mean [Right Arm] 107 Blood Pressure Source [Right Arm] Automatic Cuff Blood Pressure Position [Right Arm] Sitting 02 Sat by Pulse Oximetry 95 97 96 Oxygen Delivery Method Room Air 11/18/24 14:00 11/18/24 14:30 Temperature Temperature Source Pulse Rate 60 63 Pulse Rate [Right Brachial] Respiratory Rate 15 15 Blood Pressure 123/81 120/81 Blood Pressure [Right Arm] Blood Pressure Mean 88 88 Blood Pressure Mean [Right Arm] Blood Pressure Source [Right Arm] Blood Pressure Position [Right Arm] 02 Sat by Pulse Oximetry 99 98 Oxygen Delivery Method Lab Data Labs: Lab Results 11/18/24 13:01: HCV Ab VIANEY w/Rflx PCR Qn Negative, HIV Ag/Ab Combo Qual Negative 11/18/24 13:07: WBC 9.4, RBC 5.13, Hgb 14.6, Hct 42.9, MCV 83.6, MCH 28.5, MCHC 34.0, RDW 12.7, Plt Count 208, MPV 11.4 H, Neut % (Auto) 65.2, Lymph % (Auto) 25.3, [place] % (Auto) 7.3, Eos % (Auto) 1.5, Baso % (Auto) 0.5, Neut # (Auto) 6.1, Lymph # (Auto) 2.4, [place] # (Auto) 0.7, Eos # (Auto) 0.1, Baso # (Auto) 0.1, PT 10.3, INR 0.92, Sodium 138, Potassium 4.0, Chloride 101, Carbon Dioxide 28, Anion Gap 13.0, BUN 17, Creatinine 1.00, Estimated Creat Clear 170, Estimated GFR 83, Est GFR ( Amer) 100, Glucose 98, Calcium 8.7, Total Bilirubin 0.4, AST 39, ALT 43, Alkaline Phosphatase 79, Total Creatine Kinase 188 H, Troponin I < 0.01, NT-Pro-B Natriuret Pep < 20.0, Total Protein 7.9, Albumin 4.6, Globulin 3.3 H, Albumin/Globulin Ratio 1.4 Response Orders (Tests/Meds): ORDERS Category Date Time Status XR chest portable Stat Exams 11/18/24 13:12 Completed CK [Creatine Kinase] Stat Lab 11/18/24 13:07 Completed Complete Blood Count Auto Diff Stat Lab 11/18/24 13:07 Completed Comprehensive Metabolic Panel Stat Lab 11/18/24 13:07 Completed D-Dimer Stat Lab 11/18/24 13:07 Stop Req HIV Combo Stat Lab 11/18/24 13:01 Completed Hepatitis C Ab Qual. W/ RFX Stat Lab 11/18/24 13:01 Completed NT Pro Brain Natriuretic Pep. Stat Lab 11/18/24 13:07 Completed PT INR [Prothrombin Time INR] Stat Lab 11/18/24 13:07 Completed Troponin I Q3H Lab 11/18/24 16:15 Ordered Troponin I Q3H Lab 11/18/24 19:15 Ordered Troponin I Stat Lab 11/18/24 13:07 Completed ECG Data Tracing #1: ECG Narrative: Independently inter by me rate of 75, rhythm is regular, axis is normal, no ST elevation in anatomical contiguous leads, QTc 414.
[2024-11-18 13:17] LABS: Hematocrit 42.9 % (42.0-52.0); Hemoglobin 14.6 g/dL (14.1-18.0); Immature Granulocytes % 0.2 %; Mean Corpuscular HGB Conc 34.0 g/dL (31.8-35.4); Mean Corpuscular Hemoglobin 28.5 pg (27.0-31.2); Mean Corpuscular Volume 83.6 fl (80-94); Nucleated Red Blood Cells % 0 %; Platelet Count 208 K/mm3 (142-424); Red Blood Count 5.13 M/mm3 (4.60-6.20); Red Cell Distribution Width-SD 38.6 fL; White Blood Count 9.4 K/mm3 (4.8-10.8)
[2024-11-18 13:23] LABS: INR 0.92 (0.9-1.1); Prothrombin Time 10.3 seconds (10.1-12.5)
[2024-11-18 13:31] VITALS: BP 123/79; PULSE 73; RESP 18; O2SAT 96
[2024-11-18 13:40] LABS: Albumin Level 4.6 g/dl (3.5-5.0); Chloride 101 mmol/L (98-107); Potassium 4.0 mmoL/L (3.5-5.1); Sodium 138 mmol/L (136-145)
[2024-11-18 13:42] LABS: Alanine Aminotransferase 43 U/L (12-78); Anion Gap 13.0 mEq/L (5-15); Aspartate Amino Transferase 39 U/L (17-59); Blood Urea Nitrogen 17 mg/dl (9-20); Carbon Dioxide 28 mmol/L (22.0-30.0); Creatinine Clearance Estimated 170 mL/min (50-200); Creatinine,Serum 1.00 mg/dl (0.66-1.25); Estimated Glomerular Filt Rate 83 ml/min (>60); GFR (African American) 100 ML/MIN (>60)
[2024-11-18 13:43] LABS: Albumin/Globulin Ratio 1.4 (1.1-1.8); Alkaline Phosphatase 79 U/L (38-126); Bilirubin,Total 0.4 mg/dl (0.2-1.3); Calcium 8.7 mg/dl (8.4-10.2); Creatine Kinase 188 U/L (55-170); Globulin 3.3 g/dL (1.3-3.2); Glucose 98 mg/dl (74-100); Total Protein,Serum 7.9 g/dl (6.3-8.2)
[2024-11-18 13:52] LABS: NT Pro Brain Natriuretic Pep. < 20.0 pg/mL (0-125)
[2024-11-18 14:00] VITALS: BP 123/81; PULSE 60; RESP 15; O2SAT 99
[2024-11-18 14:19] LABS: Troponin I < 0.01 ng/ml (0.00-0.034)
[2024-11-18 14:30] VITALS: BP 120/81; PULSE 63; RESP 15; O2SAT 98
[2024-11-18 14:56] LABS: Hepatitis C Ab Qual. W/ RFX NEGATIVE (Negative)
[2024-11-18 15:20] VITALS: BP 120/81; PULSE 61; RESP 18; TEMP 36.8; O2SAT 98
[2024-11-18 15:32] LABS: D-Dimer 0.45 ug/mL (0.0-0.5)
== END 2024-11-18 15:21 | disposition home or self-care (01) ==
PROVIDERS: Physician Assistant; Emergency Provider Emergency Medicine; PCP Nurse Practitioner Family
DX: R07.9 Chest pain, unspecified (principal)
CPT/HCPCS: 71045; 80053; 82550; 83880; 84484; 85025; 85378; 85610; 86803; 87389; 93005; 99284

== ENCOUNTER 2024-11-24 06:57 | Outpatient (CLI) | payer OTHER, SELFPAY ==
--- NOTE | 2024-11-24 | CA_ITS ---
APPROVED REPORT Exam: Exercise Treadmill Technologist: Dayanara Chino Ht: 6 ft 2 in Wt: 135 lbs BSA: 1.84 m2 HR: 61 bpm BP: 128/87 mmHg Stress Test Details Test: Exercise stress testing was performed using a [place] protocol. HR Resting HR: 61 bpm Max Heart Rate (APMHR): 180.699605 bpm Max HR Achieved: 162 bpm Target HR (85% APMHR): 153.424001 bpm % of APMHR: 90.00 Recovery HR: 95 bpm BP Resting BP: 128.0/87.0 mmHg Max BP: 162.0/87.0 mmHg Recovery BP: 128.0/80.0 mmHg ECG Resting ECG: Sinus rhythm Stress ECG Conclusion Symptoms: Dyspnea, leg fatigue Arrhythmias/Ectopy: - ST-T Changes: Less than [address] depression. Conclusion: Normal EKG response to exercise. Electronically signed by : Tammie Foster MD 11/24/2024 13:05:28
--- NOTE | 2024-11-24 07:00 | NM_ITS ---
APPROVED REPORT Exam: Nuclear Stress Test Indication: Chest pain, SOB, Fatigue, Family history Patient Location: Outpatient Stress Tech: Dayanara Chino NM Tech:Zandra Miranda, ARRT, RT (R)(N) Ht: 6 ft 2 in Wt: 260 lbs HR: 60 bpm BP: 128/87 mmHg BSA: 2.43 m2 TID: 1.15 BMI: 33.3 History: Chest pain, SOB, Fatigue, Family history Procedure: Patient exercised on [place] protocol 8:00 minutes and sec, resting heart rate 60 bpm, resting blood pressure 128/87 mmHg, with exercise maximum heart rate achived was 162 bpm which is 90 % of the maximum predicted heart rate and blood pressure was 162/87 mmHg. Test was stopped due to SOB. Patient denied any complaint of chest pain. Patient has average exercise capacity, achieved 10.3 METs of workload on treadmill, the blood pressure response to exercise was normal. Cardiac Stress and Resting SPECT Images: Cardiac Stress and Resting SPECT images were obtained using technetium 99m Myoview 32.6 mCi stress and 10.25 mCi at rest. Technically difficult study due to significant soft tissue overlap with the cardiac borders. This may affect the diagnostic interpretation of the study findings. Resting and stress imaging in supine positions demonstrate a small sized, moderate, fixed perfusion defect in the LV apical wall. This is no longer visualized with prone stress imaging. Findings are likely suggestive of soft tissue attenuation, but true perfusion defect cannot be entirely ruled out. Gated imaging demonstrates normal global and regional LV systolic function. LVEF is calculated at 52%. Conclusion: Technically difficult study due to significant soft tissue overlap with the cardiac borders. This may affect the diagnostic interpretation of the study findings. Small sized, moderate, fixed perfusion defect in the LV apical wall. This is no longer visualized with prone stress imaging. Findings are likely suggestive of soft tissue attenuation, but true perfusion defect cannot be entirely ruled out. Gated imaging demonstrates normal global and regional LV systolic function. LVEF is calculated at 52%. The setting of technically difficult study and inconclusive presence of a perfusion defect, further evaluation noninvasively with CCTA may be suggested, if deemed clinically appropriate and feasible. Electronically signed by : Tammie Foster MD 11/24/2024 13:02:42
--- OUTSIDE RECORDS SUMMARY | 2024-11-24 07:00 | XMS_ITS | Clinical Summary ---
Author Organization Healthcare Address [address] [place] [address] Care Team Providers Care Cricket Coach Name Role Phone Unavailable Primary Care Provider [...]
--- OUTSIDE RECORDS SUMMARY | 2024-11-24 07:00 | XMS_ITS | Data Portability ---
Author Organization [facility] Address [address] [place] [address] Assessment No assessment recorded. Plan of Treatment Reminders Order Date Submit Date Provider Last Modified By Organization Details Last Modified Time Details Appointments None recorded. Lab drug screen, urine 2024 025 [facility], [address] [place] [address], [address], 5 18:36:51 rapid SARS CoV + SARS CoV 2 Ag, QL IA, respiratory specimen 2024 025 [facility], [address] [place] [address], [address], 5 18:26:14 rapid flu (A+B) 2024 025 [facility], [address] [place] [address], [address], 5 18:26:13 HbA1c (hemoglobin A1c), blood 2023 024 [facility], [address] [place] [address], [address], 4 15:17:32 celiac disease serology panel, serum 2023 024 CORINTH [facility], [address], Eddi [address], [place], [address], 4 11:08:28 food allergen panel, serum 2023 024 MELISA [facility], [address], Eddi [address], [place], [address], 4 11:08:30 drug screen, urine 2023 024 [facility], [address] [facility], [place], [address], 4 14:26:38 amylase + lipase, serum 2023 024 MELISA [facility], [address], Edd[place] [address], [place], [address], 4 11:08:30 CMP, serum or plasma 2023 024 CORINTH [facility], [address], Eddi [address], [place], [address], 4 11:08:29 CBC w/ auto diff 2023 024 CORINTH [facility], [address], Edd[place] [address], [place], [address], 4 11:08:28 Referral gastroenter ologist referral 2023 024 [facility]: Gi, [address], [place], [address], 4 13:04:46 Procedures None recorded. Surgeries None recorded. Imaging US, gallbladder 2023 024 [facility] ([facility]), [address], [place], [address], 4 11:17:27 Medication Orders Adipex-P 37.5 mg tablet 2024 025 [facility], [facility] [address] [address], [place], [id number], 5 16:38:13 Adipex-P 37.5 mg tablet 2024 025 [facility], [address] [place] [address] Susan, [place], [id number], 5 15:01:41 albuterol sulfate HFA 90 mcg/actuati on aerosol inhaler 2024 025 [facility], [address] [place] [address], [place], [id number], 5 18:26:12 benzonatate 100 mg capsule 2024 025 [facility], [address] [place] [address], [place]ley, [id number], 5 14:44:26 dexamethaso ne sodium phosphate 4 mg/mL injection solution 2024 025 amber Not available 5 14:38:30 prednisone 20 mg tablet 2024 025 [facility], [address] [place] [address], [place] Bagley, [id number], 5 14:44:45 Adipex-P 37.5 mg tablet 2024 025 [facility], [address] [place] [address], RAMON[place] Bagley, [id number], 5 18:30:30 Adipex-P 37.5 mg tablet 2023 024 [facility], [address] [place] [address], [place] Bagley, [id number], 17:45:04 Patient TargetsNo targets recorded. Patient InstructionsNo instructions recorded. Reason for Referral Lab Tester Referral for Family history of cancer of [...] tive enter opath y. Not Available [facility] ([facility]) [address] [place], [address], 07/10/2023 11:08:27 07/05/19 24 07/06/2023 ZAYRA C DISEA SE PANEL immunoglobul in A, qn, serum 189 mg/dL 90-386 Not Available [facility] ([facility]) [address] [place], [address], 07/10/2023 11:08:27 07/05/19 24 07/08/2023 ZAYRA C DISEA SE PANEL endomysial antibody IgA Negati ve negati ve Not Available [facility] ([facility]) [address] [place], [address], 07/10/2023 11:08:27 07/05/19 24 07/06/2023 CBC WITH DIFFE RENTI AL/PL ATELE T WBC 7.2 x10e3 /uL 3.4-10 .8 Not Available [facility] ([facility]) [address] [place], [address], 07/10/2023 11:08:28 07/05/19 24 07/06/2023 CBC WITH DIFFE RENTI AL/PL ATELE T RBC 5.43 x10e6 /uL 4.14-5 .80 Not Available [facility] ([facility]) [address] [facility], [place], [address], 07/10/2023 11:08:28 07/05/19 24 07/06/2023 CBC WITH DIFFE RENTI AL/PL ATELE T hemoglobin 15.3 g/dL 13.0-1 7.7 Not Available [facility] ([facility]) [address] [place], [address], 07/10/2023 11:08:28 07/05/19 24 07/06/2023 CBC WITH DIFFE RENTI AL/PL ATELE T hematocrit 47.0 % 37.5-5 1.0 Not Available [facility] ([facility]) [address] [place], [address], 07/10/2023 11:08:28 07/05/19 24 07/06/2023 CBC WITH DIFFE RENTI AL/PL ATELE T MCV 87 fL 79-97 Not Available [facility] ([facility]) [address] [place], [address], 07/10/2023 11:08:28 07/05/19 24 07/06/2023 CBC WITH DIFFE RENTI AL/PL ATELE T MCH 28.2 pg 26.6-3 3.0 Not Available [facility] ([facility]) [address] [place], [address], 07/10/2023 11:08:28 07/05/19 24 07/06/2023 CBC WITH DIFFE RENTI AL/PL ATELE T MCHC 32.6 g/dL 31.5-3 5.7 Not Available [facility] ([facility]) [address] [place], [address], 07/10/2023 11:08:28 07/05/19 24 07/06/2023 CBC WITH DIFFE RENTI AL/PL ATELE T RDW 13.1 % 11.6-1 5.4 Not Available [facility] ([facility]) [address] [facility], [place], [address], 07/10/2023 11:08:28 07/05/19 24 07/06/2023 CBC WITH DIFFE RENTI AL/PL ATELE T platelets 205 x10e3 /uL 150-45 0 Not Available [facility] ([facility]) [address] [facility], [place], [address], 07/10/2023 11:08:28 07/05/19 24 07/06/2023 CBC WITH DIFFE RENTI AL/PL ATELE T neutrophils 65 % not estab. Not Available [facility] ([facility]) [address] [facility], [place], [address], 07/10/2023 11:08:28 07/05/19 24 07/06/2023 CBC WITH DIFFE RENTI AL/PL ATELE T lymphs 25 % not estab. Not Available [facility] ([facility]) [address] [facility], [place], [address], 07/10/2023 11:08:28 07/05/19 24 07/06/2023 CBC WITH DIFFE RENTI AL/PL ATELE T monocytes 6 % not estab. Not Available [facility] ([facility]) [address] [facility], [place], [address], 07/10/2023 11:08:28 07/05/19 24 07/06/2023 CBC WITH DIFFE RENTI AL/PL ATELE T eos 2 % not estab. Not Available [facility] ([facility]) [address] [facility], [place], [address], 07/10/2023 11:08:28 07/05/19 24 07/06/2023 CBC WITH DIFFE RENTI AL/PL ATELE T basos 1 % not estab. Not Available [facility] ([facility]) [address] [facility], [place], [address], 07/10/2023 11:08:28 07/05/19 24 07/06/2023 CBC WITH DIFFE RENTI AL/PL ATELE T immature cells INTERIOR DESIGNER Not Available [facility] ([facility]) [address] [facility], [place], [address], 07/10/2023 11:08:28 07/05/19 24 07/06/2023 CBC WITH DIFFE RENTI AL/PL ATELE T neutrophils (absolute) 4.7 x10e3 /uL 1.4-7. 0 Not Available [facility] ([facility]) [address] [facility], [place], [address], 07/10/2023 11:08:28 07/05/19 24 07/06/2023 CBC WITH DIFFE RENTI AL/PL ATELE T lymphs (absolute) 1.8 x10e3 /uL 0.7-3. 1 Not Available [facility] ([facility]) [address] [place], [address], 07/10/2023 11:08:28 07/05/19 24 07/06/2023 CBC WITH DIFFE RENTI AL/PL ATELE T monocytes(ab solute) 0.5 x10e3 /uL 0.1-0. 9 Not Available [facility] ([facility]) [address] [place], [address], 07/10/2023 11:08:28 07/05/19 24 07/06/2023 CBC WITH DIFFE RENTI AL/PL ATELE T eos (absolute) 0.2 x10e3 /uL 0.0-0. 4 Not Available [facility] ([facility]) [address] [facility], [place], [address], 07/10/2023 11:08:28 07/05/19 24 07/06/2023 CBC WITH DIFFE RENTI AL/PL ATELE T baso (absolute) 0.1 x10e3 /uL 0.0-0. 2 Not Available [facility] ([facility]) [address] [facility], [place], [address], 07/10/2023 11:08:28 07/05/19 24 07/06/2023 CBC WITH DIFFE RENTI AL/PL ATELE T immature granulocytes 1 % not estab. Not Available [facility] ([facility]) [address] [facility], [place], [address], 07/10/2023 11:08:28 07/05/19 24 07/06/2023 CBC WITH DIFFE RENTI AL/PL ATELE T immature grans (abs) 0.1 x10e3 /uL 0.0-0. 1 Not Available [facility] ([facility]) [address] [facility], [place], [address], 07/10/2023 11:08:28 07/05/19 24 07/06/2023 CBC WITH DIFFE RENTI AL/PL ATELE T NRBC INTERIOR DESIGNER Not Available [facility] ([facility]) [address] [facility], [place], [address], 07/10/2023 11:08:28 07/05/19 24 07/06/2023 CBC WITH DIFFE RENTI AL/PL ATELE T hematology comments: INTERIOR DESIGNER Not Available [facility] ([facility]) [address] [place], [address], 07/10/2023 11:08:28 07/05/19 24 07/06/2023 COMP. METAB OLIC PANEL (14) glucose 111 mg/dL 70-99 above high normal Not Available [facility] ([facility]) [address] [place], [address], 07/10/2023 11:08:29 07/05/19 24 07/06/2023 COMP. METAB OLIC PANEL (14) BUN 15 mg/dL 6-20 Not Available [facility] ([facility]) [address] [place], [address], 07/10/2023 11:08:29 07/05/19 24 07/06/2023 COMP. METAB OLIC PANEL (14) creatinine 1.02 mg/dL 0.76-1 .27 Not Available [facility] ([facility]) [address] [place], [address], 07/10/2023 11:08:29 07/05/19 24 07/06/2023 COMP. METAB OLIC PANEL (14) eGFR 96 mL/mi n/1.7 3 >59 Not Available [facility] ([facility]) [address] [place], [address], 07/10/2023 11:08:29 07/05/19 24 07/06/2023 COMP. METAB OLIC PANEL (14) BUN/creatini ne ratio 15 9-20 Not Available [facility] ([facility]) [address] [facility] [place], [address], 07/10/2023 11:08:29 07/05/19 24 07/06/2023 COMP. METAB OLIC PANEL (14) sodium 141 mmol/ L 134-14 4 Not Available [facility] ([facility]) [address] [facility] [place], [address], 07/10/2023 11:08:29 07/05/19 24 07/06/2023 COMP. METAB OLIC PANEL (14) potassium 4.1 mmol/ L 3.5-5. 2 Not Available [facility] ([facility]) [address] [facility] [place] [place], [address], 07/10/2023 11:08:29 07/05/19 24 07/06/2023 COMP. METAB OLIC PANEL (14) chloride 104 mmol/ L 96-106 Not Available [facility] ([facility]) [address] [facility] [place], [address], 07/10/2023 11:08:29 07/05/19 24 07/06/2023 COMP. METAB OLIC PANEL (14) carbon dioxide, total 23 mmol/ L Not Available [facility] ([facility]) [address], [place], [address], 07/10/2023 11:08:29 07/05/19 24 07/06/2023 COMP. METAB OLIC PANEL (14) calcium 9.3 mg/dL 8.7-10 .2 Not Available [facility] ([facility]) [address], [place], [address], 07/10/2023 11:08:29 07/05/19 24 07/06/2023 COMP. METAB OLIC PANEL (14) protein, total 7.0 g/dL 6.0-8. 5 Not Available [facility] ([facility]) [address] [facility], [place], [address], 07/10/2023 11:08:29 07/05/19 24 07/06/2023 COMP. METAB OLIC PANEL (14) albumin 4.5 g/dL 4.1-5. 1 Not Available [facility] ([facility]) [address] [facility], [place], [address], 07/10/2023 11:08:29 07/05/19 24 07/06/2023 COMP. METAB OLIC PANEL (14) globulin, total 2.5 g/dL 1.5-4. 5 Not Available [facility] ([facility]) [address] [facility] [place], [address], 07/10/2023 11:08:29 07/05/19 24 07/06/2023 COMP. METAB OLIC PANEL (14) A/G ratio 1.8 1.2-2. 2 Not Available [facility] ([facility]) [address] [facility], [place], [address], 07/10/2023 11:08:29 07/05/19 24 07/06/2023 COMP. METAB OLIC PANEL (14) bilirubin, total 0.4 mg/dL 0.0-1. 2 Not Available [facility] ([facility]) [address] [facility] [place], [address], 07/10/2023 11:08:29 07/05/19 24 07/06/2023 COMP. METAB OLIC PANEL (14) alkaline phosphatase 78 IU/L 44-121 Not Available [facility] ([facility]) [address] [facility] [place], [address], 07/10/2023 11:08:29 07/05/19 24 07/06/2023 COMP. METAB OLIC PANEL (14) AST (SGOT) 21 IU/L 0-40 Not Available [facility] ([facility]) [address] [place], [address], 07/10/2023 11:08:29 07/05/19 24 07/06/2023 COMP. METAB OLIC PANEL (14) ALT (SGPT) 36 IU/L 0-44 Not Available [facility] ([facility]) [address] [place], [address], 07/10/2023 11:08:29 07/05/19 24 07/06/2023 PIPE+L IPASE amylase 45 U/L 31-110 Not Available [facility] ([facility]) [address] [place], [address], 07/10/2023 11:08:30 07/05/19 24 07/06/2023 PIPE+L IPASE lipase 19 U/L 13-78 Not Available [facility] ([facility]) [address] [place], [address], 07/10/2023 11:08:30 07/05/19 24 07/06/2023 FOOD ALLER [...] >100. 00 Very High Not Available [facility] ([facility]) [address] [place], [address], 07/10/2023 11:08:30 07/05/19 24 07/10/2023 FOOD ALLER GY PROFI LE D889-LwJ egg white <0.10 kU/L class 0 Not Available [facility] ([facility]) [address] [place], [address], 07/10/2023 11:08:30 07/05/19 24 07/10/2023 FOOD ALLER GY PROFI LE D869-ApD peanut <0.10 kU/L class 0 Not Available [facility] ([facility]) [address] [place], [address], 07/10/2023 11:08:30 07/05/19 24 07/10/2023 FOOD ALLER GY PROFI LE N053-AgL soybean <0.10 kU/L class 0 Not Available [facility] ([facility]) [address] [place], [address], 07/10/2023 11:08:30 07/05/19 24 07/10/2023 FOOD ALLER GY PROFI LE L658-SqF milk <0.10 kU/L class 0 Not Available [facility] ([facility]) [address] [place], [address], 07/10/2023 11:08:30 07/05/19 24 07/10/2023 FOOD ALLER GY PROFI LE M545-MtP clam <0.10 kU/L class 0 Not Available [facility] ([facility]) [address] [place], [address], 07/10/2023 11:08:30 07/05/19 24 07/10/2023 FOOD ALLER GY PROFI LE M305-GgA shrimp <0.10 kU/L class 0 Not Available [facility] ([facility]) [address] [place], [address], 07/10/2023 11:08:30 07/05/19 24 07/10/2023 FOOD ALLER GY PROFI LE K781-LyD walnut <0.10 kU/L class 0 Not Available [facility] ([facility]) [address] [place], [address], 07/10/2023 11:08:30 07/05/19 24 07/10/2023 FOOD ALLER GY PROFI LE L797-BnC codfish <0.10 kU/L class 0 Not Available [facility] ([facility]) [address] [place], [address], 07/10/2023 11:08:30 07/05/19 24 07/10/2023 FOOD ALLER GY PROFI LE A316-LvF scallop <0.10 kU/L class 0 Not Available [facility] ([facility]) [address] [place], [address], 07/10/2023 11:08:30 07/05/19 24 07/10/2023 FOOD ALLER GY PROFI LE Z327-LqW wheat <0.10 kU/L class 0 Not Available [facility] ([facility]) [address] [place], [address], 07/10/2023 11:08:30 07/05/19 24 07/10/2023 FOOD ALLER GY PROFI LE R040-GxZ corn <0.10 kU/L class 0 Not Available [facility] ([facility]) [address] [facility], [place], [address], 07/10/2023 11:08:30 07/05/19 24 07/10/2023 FOOD ALLER GY PROFI LE T747-DfI sesame seed <0.10 kU/L class 0 Not Available [facility] ([facility]) [address] [facility], [place], [address], 07/10/2023 11:08:30 07/05/19 24 07/05/2023 drug scree n, urine THC negati ve Not Available [address], [address], 07/05/2023 09:36:17 07/05/19 24 07/05/2023 drug scree n, urine TCA negati ve Not Available [address], [address], 07/05/2023 09:36:17 07/05/19 24 07/05/2023 drug scree n, urine BAR negati ve Not Available [address], [address], 07/05/2023 09:36:17 07/05/19 24 07/05/2023 drug scree n, urine BZO negati ve Not Available [address], [address], 07/05/2023 09:36:17 07/05/19 24 07/05/2023 drug scree n, urine MTD negati ve Not Available [address], [address], 07/05/2023 09:36:17 07/05/19 24 07/05/2023 drug scree n, urine AMP negati ve Not Available [facility] [address], [address], 07/05/2023 09:36:17 07/05/19 24 07/05/2023 drug scree n, urine MOP negati ve Not Available [address], [address], 07/05/2023 09:36:17 07/05/19 24 07/05/2023 drug scree n, urine OXY negati ve Not Available [address], [address], 07/05/2023 09:36:17 07/05/19 24 07/05/2023 drug scree n, urine MDMA negati ve Not Available [address], [address], 07/05/2023 09:36:17 07/05/19 24 07/05/2023 drug scree n, urine ROSA M negati ve Not Available [address], [address], 07/05/2023 09:36:17 07/05/19 24 07/05/2023 drug scree n, urine PCP negati ve Not Available [address], [address], 07/05/2023 09:36:17 07/05/19 24 07/05/2023 drug scree n, urine MET negati ve Not Available [address], [address], 07/05/2023 09:36:17 07/15/19 24 07/15/2023 HbA1c (hemo globi n A1c), blood HbA1C 5.2 % Not Available [address], [address], 07/11/2023 08:27:46 07/15/19 24 07/15/2023 HbA1c (hemo globi n A1c), blood HbA1C 5.2 % Not Available [address], [address], 07/15/2023 15:01:19 05/26/19 25 05/26/2024 drug scree n, urine THC negati ve Not Available [address], [address], 05/26/2024 18:27:30 05/26/19 25 05/26/2024 drug scree n, urine TCA negati ve Not Available [address], [address], 05/26/2024 18:27:30 05/26/19 25 05/26/2024 drug scree n, urine BAR negati ve Not Available [address], [address], 05/26/2024 18:27:30 05/26/19 25 05/26/2024 drug scree n, urine BZO negati ve Not Available [address], [address], 05/26/2024 18:27:30 05/26/19 25 05/26/2024 drug scree n, urine MTD negati ve Not Available [address], [address], 05/26/2024 18:27:30 05/26/19 25 05/26/2024 drug scree n, urine AMP negati ve Not Available [address], [address], 05/26/2024 18:27:30 05/26/19 25 05/26/2024 drug scree n, urine MOP negati ve Not Available [address], [address], 05/26/2024 18:27:30 05/26/19 25 05/26/2024 drug scree n, urine OXY negati ve Not Available [address], [address], 05/26/2024 18:27:30 05/26/19 25 05/26/2024 drug scree n, urine MDMA negati ve Not Available [address], [address], 05/26/2024 18:27:30 05/26/19 25 05/26/2024 drug scree n, urine ROSA M negati ve Not Available [address], [address], 05/26/2024 18:27:30 05/26/19 25 05/26/2024 drug scree n, urine PCP negati ve Not Available [address], [address], 05/26/2024 18:27:30 05/26/19 25 05/26/2024 drug scree n, urine MET negati ve Not Available [address], [address], 05/26/2024 18:27:30 05/26/19 25 05/26/2024 rapid flu (A+B) Flu negati ve Not Available [address], [address], 05/26/2024 17:46:10 05/26/19 25 05/26/2024 rapid flu (A+B) Type Both A & B Not Available [address], [place], [address], 05/26/2024 17:46:10 05/26/19 25 05/26/2024 rapid SARS CoV + SARS CoV 2 Ag, QL IA, respi rator y speci men SARS CoV antigen Invali d Not Available [address], [place], [address], 05/26/2024 17:46:05 07/10/19 24 07/10/2023 US, ramona granado No observ ation record ed. [place] [id number], [place], [address], 07/11/2023 09:24:20 07/26/19 24 07/26/2023 NM, hepat obili angeli scan, w/ CCK No observ ation [facility] ed[facility] [address], [place], [address], 07/30/2023 11:36:07 07/26/19 24 07/26/2023 CT, abdom en + pelvi s, w/o contr ast No observ ation record ed. [facility] [address], [place], [address], 07/30/2023 08:32:27 08/08/19 24 08/07/2023 CT, abdom en + pelvi s, w/ contr ast No observ ation record ed. [facility] [address], [place], [address], 08/08/2023 10:26:27 11/19/19 25 11/18/2024 XR, chest , 2 view No observ ation record ed. [facility] [address], [place], [address], 11/20/2024 08:19:57 11/19/19 25 11/18/2024 elect delio ordonez am No observ ation record ed. [facility] [address], [place], [address], 11/20/2024 08:19:56 Result Notes None recorded. Problems No Known Problems Procedures Surgical History Date Name Laterality Status Provider Name and Address Organization Details Recorded Time Knee Surgery completed Charlotteazucena SH[place] - [facility] 12/17/2022 16:14:41 Back Surgery completed Charlotteazucena SHIPMAN - [facility] 12/17/2022 16:15:24 Imaging Results None recorded. Procedure [...] Recorded on: 05/29/19 12 11:11AM; User: iris granado;Luis tion: Depressi on - () Not Available Not Available Not Available benzonata [...] Details Last Updated DateTime 5 187.96 cm 38 kg/m2 740953. 34 g 90 /min 96 % 96 % 18 /min 114/82 mm[Hg] Charlotte SHIPMAN - [facility] 5 17:44:48 Date Recorded Body height Body mass index (BMI) Body weight Body temperature Heart rate Oxygen saturation Oxygen saturation in Arterial blood by Pulse oximetry Respiratory rate Systolic And Diastolic Provider Name and Address Organization Details Last Updated DateTime 4 187.96 cm 36.7 kg/m2 496259. 12 g 98 [degF] 86 /min 97 % 97 % 18 /min 118/80 mm[Hg] Charlotte SHIPMAN - [facility] 4 09:01:25 Date Recorded Body height Provider Name an d Address Organization Details Last Updated DateTime 07/15/2023 187.96 cm Charlotte Moser [place] - [facility] 0 07/15/2023 14:51:27 Date Recorded Body height Body mass index (BMI) Body weight Heart rate Oxygen saturation Oxygen saturation in Arterial blood by Pulse oximetry Respiratory rate Systolic And Diastolic Provider Name and Address Organization Details Last Updated DateTime 5 187.96 cm 36.7 kg/m2 032894. 42 g 87 /min 97 % 97 % 18 /min 124/82 mm[Hg] Charlotte Berumenler [place] - [facility] 5 14:44:07 Date Recorded Body height Body mass index (BMI) Body weight Body temperature Heart rate Respiratory rate Oxygen saturation Oxygen saturation in Arterial blood by Pulse oximetry Systolic And Diastolic Provider Name and Address Organization Details Last Updated DateTime 5 187.96 cm 36.2 kg/m2 445082. 05 g 97.9 [degF] 76 /min 18 /min 97 % 97 % 120/78 mm[Hg] Valencia Julian [place] - [facility] 5 16:04:28 Social History Question Answer Notes LastModified by Organizat ion Details LastModified Time Tobacco Smoking Status Never Smoker Charlotte montoya, [place] - [facility] 12/17/2022 16:06:42 Do You [...] Or The Highest Degree You Have Received? 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 [id number] Information not available 12/17/2022 Do you have [...] colitis N Cerebrovascular Disease N Depression N Guillain-[place] N Sleep Apnea N Aneurysm N Bronchitis N Heart Disease N Suicidal Ideation N Pre-Eclampsia N Hypertension N Osteoporosis N Immunizations Vaccine Type Date Status Note Provider Nam e and Address Organization Details Recorded Time MMR 6 completed Charlotte Moser null, [place] - [facility] 07/05/2023 08:56:01 Td (adult), 2 Lf tetanus toxoid, preservative free, adsorbed 1 completed Charlotte Ehsan null, [place] - [facility] 07/05/2023 08:56:01 Hep B, adolescent or pediatric 1 completed [facility]oser null, [place] [facility] 07/05/2023 08:56:01 Hep B, adolescent or pediatric 1 completed Charlotte [place] [facility] 07/05/2023 08:56:01 Hep B, adolescent or pediatric 1 completed Charlotte Ehsan null, [place] [facility] 07/05/2023 08:56:01 Past Encounters Encounter ID Performer Location Encounter Start Date Encounter Closed Date Diagnosis/Indication Diagnosis SNOMED-CT Code Diagnosis ICD10 Code Diagnosis Note [id number] [facility] Post [address] [address] 12/17/2022 15:43:30 12/17/2022 16:37:46 Long-term drug therapy 820520702 Z79.899 Body mass index 30+ - obesity 415564695 Z68.36 [id number] Klaudia Post [address] [address] 07/05/2023 08:43:12 07/05/2023 09:53:41 Body mass index 30+ - obesity 439326572 Z68.36 [facility] compliance discussedL ast uds: 4Control substance agreement on fileadipex consent on file Long-term drug therapy 520822948 Z79.899 Right uppe r quadrant pain 025313620 R10.11 Diarrhea 84626329 R19.7 Family his tory of cancer of colon 644811994 Z80.0 [id number] Klaudia Post [address] [address] 07/15/2023 14:50:35 07/15/2023 15:01:25 Hyperglycemia 15200734 R73.9 [id number] Vestapradiperika Ocampolarisaestella [address] [address] 05/26/2024 17:35:25 05/26/2024 18:31:59 Acute bronchitis [id number] J20.9 no sign of a bacterial infection. likely viral. viruses can take 7-14 days to run their course. nasal saline and bulb syringe to remove nasal drainage to help with congestion . monitor temp. Tylenol or Motrin as needed for pain or fever. encourage fluids, water, Gatorade, power aide, Pedialyte if /tod dler/child warm salt water gargles warm fluids sore throat lozenges sleep elevated humidifier /vaporizer follow up immediatel y for new or worsening symptoms or no noticeable improvemen t over the next 48-72 hours Body mass index 30+ - obesity [id number] Z68.36 Pt compliant with plan of careKasper reviewedme dication compliance discussedL ast uds: 5Control substance agreement on fileadipex consent on filewait to finish steroids before starting on med Long-term current use of drug therapy [id number] Z79.013 [id number] Klaudia Ocampoalison [address] [address] 07/16/2024 14:30:30 07/16/2024 15:01:56 Body mass index 30+ - obesity [id number] Z68.36 Pt compliant with plan of careKasper reviewedme dication compliance discussedL ast uds: 5Control substance agreement on fileadipex consent on filewait to finish steroids before starting on med [id number] Vestajinny alison [address] [address] 08/31/2024 15:45:46 08/31/2024 16:13:57 Body mass index 30+ - obesity [id number] Z68.36 Pt compliant with plan of careKasper [...] Alves Member ID Guarantor Name 08/31/2024 1 [facility] Luis Miguel Rose [id number] Jose Rose 10/08/2024 1 [facility] [id number] Jose Rose [id number] Jose Rose Notes Date Note Type Note [...] worse. Klaudia Post APRN [address], [place], [address], [employer] - [facility] 07/05/2023 09:40:36 07/15/2023 text/html 37 yr old male presents for an a1c check due to abnormal glucose level on labs. Charlotte Moser [place], [place] - [facility] 07/15/2023 16:44:36 05/26/2024 text/html 38 yr old male presents for cough, wheezing and congestion for two days.pt states he also would like to restart adipex. reports he has been trying diet and exercise and has not been successful. pt states he did well on adipex Klaudia Post APRN [address], [place], [address], [place] - [facility] 05/26/2024 18:29:56 07/16/2024 text/html 38 yr old male presents for a weight loss follow up, down 10 lbs., pt states tolerating med well with diet and exercise Klaudia Post APRN [address], [place], [address], [place] - [facility] 07/16/2024 15:01:18 08/31/2024 text/html 38 year old male who presents to the office today for a follow up onweight loss- at today's appt he weighs, was in steel toe shoes, last visit he was in tennis shoesat his last appt on 07-16-24 he weighed 286 lbs. Klaudia Post, [employer] [address], [place], [address], [place] - [facility] 08/31/2024 16:24:17
[2024-11-24] MEDS: ISOTOPE MYOVIEW (PER STUDY) 1 DOSE IV (08:27)
[2024-11-24] MEDS: SODIUM CHLORIDE 0.9% 10ML SYR (RAD ONLY) 10 ML IV ×2 (08:27)
[2024-11-24 10:46] LABS: Cholesterol 176 mg/dl (140-200); HDL Cholesterol 35 mg/dl (40-60); Triglycerides 227 mg/dl (30-150)
== END 2024-11-24 23:59 | disposition home or self-care (01) ==
LOC: RAD 06:58
PROVIDERS: PCP Family Medicine; Visit Provider Family Medicine
DX: R94.39 Abnormal result of other cardiovascular function study (principal); R07.9 Chest pain, unspecified; R06.02 Shortness of breath; R53.83 Other fatigue
CPT/HCPCS: 36415; 78452; 80061; 93016; 93017; 93018; A9502

== ENCOUNTER 2024-11-27 11:23 | Outpatient (CLI) | payer OTHER, SELFPAY ==
--- OUTSIDE RECORDS SUMMARY | 2024-11-27 11:25 | XMS_ITS | Data Portability ---
Author Organization [facility] Address [address] [place] [address] Assessment No assessment recorded. Plan of Treatment Reminders Order Date Submit Date Provider Last Modified By Organization Details Last Modified Time Details Appointments None recorded. Lab drug screen, urine 2024 025 [facility], [address] [place] [address], [id number], 5 18:36:51 rapid SARS CoV + SARS CoV 2 Ag, QL IA, respiratory specimen 2024 025 [facility], [address] [place] [address], [address], 5 18:26:14 rapid flu (A+B) 2024 025 [facility], [address] [place] [address], [address], 5 18:26:13 HbA1c (hemoglobin A1c), blood 2023 024 [facility], [address] [place] [address], [address], 4 15:17:32 celiac disease serology panel, serum 2023 024 PERRIN [facility], [address], [address], [place], [address], 4 11:08:28 food allergen panel, serum 2023 024 MELISA [facility], [address], [address], [place], [address], 4 11:08:30 drug screen, urine 2023 024 [facility], [address] [facility], [place], [address], 4 14:26:38 amylase + lipase, serum 2023 024 MELISA [facility], [address], [address] [address], [place], [address], 4 11:08:30 CMP, serum or plasma 2023 024 PERRIN [facility], [address], [address] [address], [place], [address], 4 11:08:29 CBC w/ auto diff 2023 024 PERRIN [facility], [address], [address] [address], [place], [address], 4 11:08:28 Referral gastroenter ologist referral 2023 024 [facility]: Gi, [address], [place], [address], 4 13:04:46 Procedures None recorded. Surgeries None recorded. Imaging US, gallbladder 2023 024 [facility] ([facility]), [address], [place], [address], 4 11:17:27 Medication Orders Adipex-P 37.5 mg tablet 2024 025 [facility], [facility] [address] [address], [place], [id number], 5 16:38:13 Adipex-P 37.5 mg tablet 2024 025 [facility], [address] [place] [address] [place], [place], [id number], 5 15:01:41 albuterol sulfate HFA 90 mcg/actuati on aerosol inhaler 2024 025 [facility], [address] [place] [address], [place], [id number], 5 18:26:12 benzonatate 100 mg capsule 2024 025 [facility], [address] [place] [address], [place], [id number], 5 14:44:26 dexamethaso ne sodium phosphate 4 mg/mL injection solution 2024 025 amber Not available 5 14:38:30 prednisone 20 mg tablet 2024 025 [facility], [address] [place] [address], [place], [id number], 5 14:44:45 Adipex-P 37.5 mg tablet 2024 025 [facility], [address] [place] [address], [place], [id number], 5 18:30:30 Adipex-P 37.5 mg tablet 2023 024 [facility], [address] [place] [address], [place], [id number], 17:45:04 Patient TargetsNo targets recorded. Patient InstructionsNo instructions recorded. 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 Not Available [facility] ([facility]) [address] [place], [address], 07/10/2023 11:08:27 07/05/19 24 07/06/2023 ZAYRA C DISEA SE PANEL immunoglobul in A, qn, serum 189 mg/dL 90-386 Not Available [facility] ([facility]) [address] [place], [address], 07/10/2023 11:08:27 07/05/19 24 07/08/2023 ZAYRA C DISEA SE PANEL endomysial antibody IgA Negati ve negati ve Not Available [facility] ([facility]) [address] [place], [address], 07/10/2023 11:08:27 07/05/19 24 07/06/2023 CBC WITH DIFFE RENTI AL/PL ATELE T WBC 7.2 x10e3 /uL 3.4-10 .8 Not Available [facility] ([facility]) [address] [place], [address], 07/10/2023 11:08:28 07/05/19 24 07/06/2023 CBC WITH DIFFE RENTI AL/PL ATELE T RBC 5.43 x10e6 /uL 4.14-5 .80 Not Available [facility] ([facility]) [address] [facility], [place], [address], 07/10/2023 11:08:28 07/05/19 24 07/06/2023 CBC WITH DIFFE RENTI AL/PL ATELE T hemoglobin 15.3 g/dL 13.0-1 7.7 Not Available [facility] ([facility]) [address] [place], [address], 07/10/2023 11:08:28 07/05/19 24 07/06/2023 CBC WITH DIFFE RENTI AL/PL ATELE T hematocrit 47.0 % 37.5-5 1.0 Not Available [facility] ([facility]) [address] [place], [address], 07/10/2023 11:08:28 07/05/19 24 07/06/2023 CBC WITH DIFFE RENTI AL/PL ATELE T MCV 87 fL 79-97 Not Available [facility] ([facility]) [address] [place], [address], 07/10/2023 11:08:28 07/05/19 24 07/06/2023 CBC WITH DIFFE RENTI AL/PL ATELE T MCH 28.2 pg 26.6-3 3.0 Not Available [facility] ([facility]) [address] [place], [address], 07/10/2023 11:08:28 07/05/19 24 07/06/2023 CBC WITH DIFFE RENTI AL/PL ATELE T MCHC 32.6 g/dL 31.5-3 5.7 Not Available [facility] ([facility]) [address] [place], [address], 07/10/2023 11:08:28 07/05/19 24 07/06/2023 CBC WITH DIFFE RENTI AL/PL ATELE T RDW 13.1 % 11.6-1 5.4 Not Available [facility] ([facility]) [address] [facility], [place], [address], 07/10/2023 11:08:28 07/05/19 24 07/06/2023 CBC WITH DIFFE RENTI AL/PL ATELE T platelets 205 x10e3 /uL 150-45 0 Not Available [facility] ([facility]) [address] [facility], [place], [address], 07/10/2023 11:08:28 07/05/19 24 07/06/2023 CBC WITH DIFFE RENTI AL/PL ATELE T neutrophils 65 % not estab. Not Available [facility] ([facility]) [address] [facility], [place], [address], 07/10/2023 11:08:28 07/05/19 24 07/06/2023 CBC WITH DIFFE RENTI AL/PL ATELE T lymphs 25 % not estab. Not Available [facility] ([facility]) [address] [facility], [place], [address], 07/10/2023 11:08:28 07/05/19 24 07/06/2023 CBC WITH DIFFE RENTI AL/PL ATELE T monocytes 6 % not estab. Not Available [facility] ([facility]) [address] [facility], [place], [address], 07/10/2023 11:08:28 07/05/19 24 07/06/2023 CBC WITH DIFFE RENTI AL/PL ATELE T eos 2 % not estab. Not Available [facility] ([facility]) [address] [facility], [place], [address], 07/10/2023 11:08:28 07/05/19 24 07/06/2023 CBC WITH DIFFE RENTI AL/PL ATELE T basos 1 % not estab. Not Available [facility] ([facility]) [address] [facility], [place], [address], 07/10/2023 11:08:28 07/05/19 24 07/06/2023 CBC WITH DIFFE RENTI AL/PL ATELE T immature cells SHUTTLE CAR OPERATOR Not Available [facility] ([facility]) [address] [facility], [place], [address], 07/10/2023 11:08:28 07/05/19 24 07/06/2023 CBC WITH DIFFE RENTI AL/PL ATELE T neutrophils (absolute) 4.7 x10e3 /uL 1.4-7. 0 Not Available [facility] ([facility]) [address] [facility], [place], [address], 07/10/2023 11:08:28 07/05/19 24 07/06/2023 CBC WITH DIFFE RENTI AL/PL ATELE T lymphs (absolute) 1.8 x10e3 /uL 0.7-3. 1 Not Available [facility] ([facility]) [address] [place], [address], 07/10/2023 11:08:28 07/05/19 24 07/06/2023 CBC WITH DIFFE RENTI AL/PL ATELE T monocytes(ab solute) 0.5 x10e3 /uL 0.1-0. 9 Not Available [facility] ([facility]) [address] [place], [address], 07/10/2023 11:08:28 07/05/19 24 07/06/2023 CBC WITH DIFFE RENTI AL/PL ATELE T eos (absolute) 0.2 x10e3 /uL 0.0-0. 4 Not Available [facility] ([facility]) [address] [facility], [place], [address], 07/10/2023 11:08:28 07/05/19 24 07/06/2023 CBC WITH DIFFE RENTI AL/PL ATELE T baso (absolute) 0.1 x10e3 /uL 0.0-0. 2 Not Available [facility] ([facility]) [address] [facility], [place], [address], 07/10/2023 11:08:28 07/05/19 24 07/06/2023 CBC WITH DIFFE RENTI AL/PL ATELE T immature granulocytes 1 % not estab. Not Available [facility] ([facility]) [address] [facility], [place], [address], 07/10/2023 11:08:28 07/05/19 24 07/06/2023 CBC WITH DIFFE RENTI AL/PL ATELE T immature grans (abs) 0.1 x10e3 /uL 0.0-0. 1 Not Available [facility] ([facility]) [address] [facility], [place], [address], 07/10/2023 11:08:28 07/05/19 24 07/06/2023 CBC WITH DIFFE RENTI AL/PL ATELE T NRBC SHUTTLE CAR OPERATOR Not Available [facility] ([facility]) [address] [facility], [place], [address], 07/10/2023 11:08:28 07/05/19 24 07/06/2023 CBC WITH DIFFE RENTI AL/PL ATELE T hematology comments: SHUTTLE CAR OPERATOR Not Available [facility] ([facility]) [address] [place], [address], 07/10/2023 11:08:28 07/05/19 24 07/06/2023 COMP. METAB OLIC PANEL (14) glucose 111 mg/dL 70-99 above high normal Not Available [facility] ([facility]) [address] [place], [address], 07/10/2023 11:08:29 07/05/19 24 07/06/2023 COMP. METAB OLIC PANEL (14) BUN 15 mg/dL 6-20 Not Available [facility] ([facility]) [address] [place], [address], 07/10/2023 11:08:29 07/05/19 24 07/06/2023 COMP. METAB OLIC PANEL (14) creatinine 1.02 mg/dL 0.76-1 .27 Not Available [facility] ([facility]) [address] [place], [address], 07/10/2023 11:08:29 07/05/19 24 07/06/2023 COMP. METAB OLIC PANEL (14) eGFR 96 mL/mi n/1.7 3 >59 Not Available [facility] ([facility]) [address] [place], [address], 07/10/2023 11:08:29 07/05/19 24 07/06/2023 COMP. METAB OLIC PANEL (14) BUN/creatini ne ratio 15 9-20 Not Available [facility] ([facility]) [address] [facility] [place], [address], 07/10/2023 11:08:29 07/05/19 24 07/06/2023 COMP. METAB OLIC PANEL (14) sodium 141 mmol/ L 134-14 4 Not Available [facility] ([facility]) [address] [facility] [place], [address], 07/10/2023 11:08:29 07/05/19 24 07/06/2023 COMP. METAB OLIC PANEL (14) potassium 4.1 mmol/ L 3.5-5. 2 Not Available [facility] ([facility]) [address] [facility] [place], [address], 07/10/2023 11:08:29 07/05/19 24 07/06/2023 COMP. METAB OLIC PANEL (14) chloride 104 mmol/ L 96-106 Not Available [facility] ([facility]) [address] [facility] [place], [address], 07/10/2023 11:08:29 07/05/19 24 07/06/2023 COMP. METAB OLIC PANEL (14) carbon dioxide, total 23 mmol/ L Not Available [facility] ([facility]) [address], [place], [address], 07/10/2023 11:08:29 07/05/19 24 07/06/2023 COMP. METAB OLIC PANEL (14) calcium 9.3 mg/dL 8.7-10 .2 Not Available [facility] ([facility]) [address], [place], [address], 07/10/2023 11:08:29 07/05/19 24 07/06/2023 COMP. METAB OLIC PANEL (14) protein, total 7.0 g/dL 6.0-8. 5 Not Available [facility] ([facility]) [address] [facility], [place], [address], 07/10/2023 11:08:29 07/05/19 24 07/06/2023 COMP. METAB OLIC PANEL (14) albumin 4.5 g/dL 4.1-5. 1 Not Available [facility] ([facility]) [address] [facility], [place], [address], 07/10/2023 11:08:29 07/05/19 24 07/06/2023 COMP. METAB OLIC PANEL (14) globulin, total 2.5 g/dL 1.5-4. 5 Not Available [facility] ([facility]) [address] [facility] [place], [address], 07/10/2023 11:08:29 07/05/19 24 07/06/2023 COMP. METAB OLIC PANEL (14) A/G ratio 1.8 1.2-2. 2 Not Available [facility] ([facility]) [address] [facility], [place], [address], 07/10/2023 11:08:29 07/05/19 24 07/06/2023 COMP. METAB OLIC PANEL (14) bilirubin, total 0.4 mg/dL 0.0-1. 2 Not Available [facility] ([facility]) [address] [facility] [place], [address], 07/10/2023 11:08:29 07/05/19 24 07/06/2023 COMP. METAB OLIC PANEL (14) alkaline phosphatase 78 IU/L 44-121 Not Available [facility] ([facility]) [address] [facility] [place], [address], 07/10/2023 11:08:29 07/05/19 24 07/06/2023 COMP. METAB OLIC PANEL (14) AST (SGOT) 21 IU/L 0-40 Not Available [facility] ([facility]) [address] [place], [address], 07/10/2023 11:08:29 07/05/19 24 07/06/2023 COMP. METAB OLIC PANEL (14) ALT (SGPT) 36 IU/L 0-44 Not Available [facility] ([facility]) [address] [place], [address], 07/10/2023 11:08:29 07/05/19 24 07/06/2023 PIPE+L IPASE amylase 45 U/L 31-110 Not Available [facility] ([facility]) [address] [place], [address], 07/10/2023 11:08:30 07/05/19 24 07/06/2023 PIPE+L IPASE lipase 19 U/L 13-78 Not Available [facility] ([facility]) [address] [place], [address], 07/10/2023 11:08:30 07/05/19 24 07/06/2023 FOOD ALLER [...] >100. 00 Very High Not Available [facility] ([facility]) [address] [place], [address], 07/10/2023 11:08:30 07/05/19 24 07/10/2023 FOOD ALLER GY PROFI LE A033-SaS egg white <0.10 kU/L class 0 Not Available [facility] ([facility]) [address] [place], [address], 07/10/2023 11:08:30 07/05/19 24 07/10/2023 FOOD ALLER GY PROFI LE O789-HeR peanut <0.10 kU/L class 0 Not Available [facility] ([facility]) [address] [place], [address], 07/10/2023 11:08:30 07/05/19 24 07/10/2023 FOOD ALLER GY PROFI LE M937-OaD soybean <0.10 kU/L class 0 Not Available [facility] ([facility]) [address] [place], [address], 07/10/2023 11:08:30 07/05/19 24 07/10/2023 FOOD ALLER GY PROFI LE A409-NtI milk <0.10 kU/L class 0 Not Available [facility] ([facility]) [address] [place], [address], 07/10/2023 11:08:30 07/05/19 24 07/10/2023 FOOD ALLER GY PROFI LE V314-NjZ clam <0.10 kU/L class 0 Not Available [facility] ([facility]) [address] [place], [address], 07/10/2023 11:08:30 07/05/19 24 07/10/2023 FOOD ALLER GY PROFI LE H186-JpV shrimp <0.10 kU/L class 0 Not Available [facility] ([facility]) [address] [place], [address], 07/10/2023 11:08:30 07/05/19 24 07/10/2023 FOOD ALLER GY PROFI LE S633-PfD walnut <0.10 kU/L class 0 Not Available [facility] ([facility]) [address] [place], [address], 07/10/2023 11:08:30 07/05/19 24 07/10/2023 FOOD ALLER GY PROFI LE R015-GpN codfish <0.10 kU/L class 0 Not Available [facility] ([facility]) [address] [place], [address], 07/10/2023 11:08:30 07/05/19 24 07/10/2023 FOOD ALLER GY PROFI LE G787-IbI scallop <0.10 kU/L class 0 Not Available [facility] ([facility]) [address] [place], [address], 07/10/2023 11:08:30 07/05/19 24 07/10/2023 FOOD ALLER GY PROFI LE S104-XxH wheat <0.10 kU/L class 0 Not Available [facility] ([facility]) [address] [place], [address], 07/10/2023 11:08:30 07/05/19 24 07/10/2023 FOOD ALLER GY PROFI LE A889-VyM corn <0.10 kU/L class 0 Not Available [facility] ([facility]) [address] [facility], [place], [address], 07/10/2023 11:08:30 07/05/19 24 07/10/2023 FOOD ALLER GY PROFI LE M952-TpM sesame seed <0.10 kU/L class 0 Not Available [facility] ([facility]) [address] [facility], [place], [address], 07/10/2023 11:08:30 07/05/19 24 07/05/2023 drug scree n, urine THC negati ve Not Available [address], [address], 07/05/2023 09:36:17 07/05/19 24 07/05/2023 drug scree n, urine TCA negati ve Not Available [address], [address], 07/05/2023 09:36:17 07/05/19 24 07/05/2023 drug scree n, urine BAR negati ve Not Available [address], [address], 07/05/2023 09:36:17 07/05/19 24 07/05/2023 drug scree n, urine BZO negati ve Not Available [address], [address], 07/05/2023 09:36:17 07/05/19 24 07/05/2023 drug scree n, urine MTD negati ve Not Available [address], [address], 07/05/2023 09:36:17 07/05/19 24 07/05/2023 drug scree n, urine AMP negati ve Not Available [facility] [address], [address], 07/05/2023 09:36:17 07/05/19 24 07/05/2023 drug scree n, urine MOP negati ve Not Available [address], [address], 07/05/2023 09:36:17 07/05/19 24 07/05/2023 drug scree n, urine OXY negati ve Not Available [address], [address], 07/05/2023 09:36:17 07/05/19 24 07/05/2023 drug scree n, urine MDMA negati ve Not Available [address], [address], 07/05/2023 09:36:17 07/05/19 24 07/05/2023 drug scree n, urine ROSA M negati ve Not Available [address], [address], 07/05/2023 09:36:17 07/05/19 24 07/05/2023 drug scree n, urine PCP negati ve Not Available [address], [address], 07/05/2023 09:36:17 07/05/19 24 07/05/2023 drug scree n, urine MET negati ve Not Available [address], [address], 07/05/2023 09:36:17 07/15/19 24 07/15/2023 HbA1c (hemo globi n A1c), blood HbA1C 5.2 % Not Available [address], [address], 07/11/2023 08:27:46 07/15/19 24 07/15/2023 HbA1c (hemo globi n A1c), blood HbA1C 5.2 % Not Available [address], [address], 07/15/2023 15:01:19 05/26/19 25 05/26/2024 drug scree n, urine THC negati ve Not Available [address], [address], 05/26/2024 18:27:30 05/26/19 25 05/26/2024 drug scree n, urine TCA negati ve Not Available [address], [address], 05/26/2024 18:27:30 05/26/19 25 05/26/2024 drug scree n, urine BAR negati ve Not Available [address], [address], 05/26/2024 18:27:30 05/26/19 25 05/26/2024 drug scree n, urine BZO negati ve Not Available [address], [address], 05/26/2024 18:27:30 05/26/19 25 05/26/2024 drug scree n, urine MTD negati ve Not Available [address], [address], 05/26/2024 18:27:30 05/26/19 25 05/26/2024 drug scree n, urine AMP negati ve Not Available [address], [address], 05/26/2024 18:27:30 05/26/19 25 05/26/2024 drug scree n, urine MOP negati ve Not Available [address], [address], 05/26/2024 18:27:30 05/26/19 25 05/26/2024 drug scree n, urine OXY negati ve Not Available [address], [address], 05/26/2024 18:27:30 05/26/19 25 05/26/2024 drug scree n, urine MDMA negati ve Not Available [address], [address], 05/26/2024 18:27:30 05/26/19 25 05/26/2024 drug scree n, urine ROSA M negati ve Not Available [address], [address], 05/26/2024 18:27:30 05/26/19 25 05/26/2024 drug scree n, urine PCP negati ve Not Available [address], [address], 05/26/2024 18:27:30 05/26/19 25 05/26/2024 drug scree n, urine MET negati ve Not Available [address], [address], 05/26/2024 18:27:30 05/26/19 25 05/26/2024 rapid flu (A+B) Flu negati ve Not Available [address], [address], 05/26/2024 17:46:10 05/26/19 25 05/26/2024 rapid flu (A+B) Type Both A & B Not Available [address], [place], [address], 05/26/2024 17:46:10 05/26/19 25 05/26/2024 rapid SARS CoV + SARS CoV 2 Ag, QL IA, respi rator y speci men SARS CoV antigen Invali d Not Available [address], [place], [address], 05/26/2024 17:46:05 07/10/19 24 07/10/2023 US, ramona granado No observ ation record ed. [address] [place] [address], [place], [address], 07/11/2023 09:24:20 07/26/19 24 07/26/2023 NM, hepat obili angeli scan, w/ CCK No observ ation [facility] ed[email or web address] [address], [place], [address], 07/30/2023 11:36:07 07/26/19 24 07/26/2023 CT, abdom en + pelvi s, w/o contr ast No observ ation record ed. [facility] [address], [place], [address], 07/30/2023 08:32:27 08/08/19 24 08/07/2023 CT, abdom en + pelvi s, w/ contr ast No observ ation record ed. [email or web address] [address], [place], [address], 08/08/2023 10:26:27 11/19/19 25 11/18/2024 XR, chest , 2 view No observ ation record ed. [facility] [address], [place], [address], 11/20/2024 08:19:57 11/19/19 25 11/18/2024 elect delio ordonez am No observ ation record ed. [facility] [address], [place], [address], 11/20/2024 08:19:56 Result Notes None recorded. Problems [...] Updated DateTime 5 187.96 cm 38 kg/m2 677579. 34 g 90 /min 96 % 96 % 18 /min 114/82 mm[Hg] Charlotte SHIPMAN - [facility] 5 17:44:48 Date Recorded Body height Body mass index (BMI) Body weight Body temperature Heart rate Oxygen saturation Oxygen saturation in Arterial blood by Pulse oximetry Respiratory rate Systolic And Diastolic Provider Name and Address Organization Details Last Updated DateTime 4 187.96 cm 36.7 kg/m2 467146. 12 g 98 [degF] 86 /min 97 [...] Updated DateTime 5 187.96 cm 36.7 kg/m2 298281. 42 g 87 /min 97 % 97 % 18 /min 124/82 mm[Hg] Charlotte [place]ler [place] - [facility] 5 14:44:07 Date Recorded Body height Body mass index (BMI) Body weight Body temperature Heart rate Respiratory rate Oxygen saturation Oxygen saturation in Arterial blood by Pulse oximetry Systolic And Diastolic Provider Name and Address Organization Details Last Updated DateTime 5 187.96 cm 36.2 kg/m2 706754. 05 g 97.9 [degF] 76 /min 18 [...] Or The Highest Degree You Have Received? 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 [id number] Information not available 12/17/2022 Do you have [...] Atrial Fibrillation N congenital heart disease N Blood Diseases N Kidney Stones N Hyperthyroidism N Blood Transfusion N Rheumatoid arthritis N Erectile Dysfunction N amputation N Colonoscopy N Skin Lesions N COPD N Depression N Pneumonia N Incontinence N Murmur N Edema N Alzheimer's Disease N Migraine Headaches N Tobacco Abuse N Anxiety Disorder N Hemorrhoids N Muscle, Joint, or Bone Problems N Obesity N Vision or Eye Problems N Arthritis N Restless Leg Syndrome N Polyps N Infertility N Mental Disorder N Carpal Tunnel N Acid Reflux (GERD) N Cancer N Varicosities N Stroke N Tendonitis N Crohn's Disease N Hypercholesterolemia N Skin Cancer N Headaches N Fibromyalgia N Anal Fissure N Irritable Bowel Syndrome N Kidney Disease N Heart Problems N [...] Cancer N Neuropathy N Pulmonary Embolism N COVID 19 N History of DVT N Herniated Disc N Chronic Ear Infections N Chicken Pox [...] D Deficiency N Cellulitis N Endometriosis N Fracture N Bladder or Kidney Problems N Colorectal Cancer N Liver Disease N Panic Disorder N Schizophrenia N Concussion N Spina Bifida N Allergies/Hayfever N Osteoarthritis N Parkinson's Disease N Disc Protrusion N STI N Esophagitis N Angina N Thyroid Problems N GI Problems N ADD/ADHD N Anemia N Multiple Sclerosis N Abnormal PAP N Lumbago N Mental Illness N Psychiatric Illness N Diabetes N Ovarian Cancer N Bedwetting N Degenerative Disc Disease N Seizures/Epilepsy N Congestive Heart Failure (CHF) N Hyperlipidemia N Syncope N Insomnia N Eczema N Abuse/Domestic Violence N Attention Deficient Disorder N Diverticulitis N Dementia N Ulcerative colitis N Cerebrovascular Disease N Depression N Guillain-[place] N Sleep Apnea N Aneurysm N Bronchitis N Heart Disease N Suicidal Ideation N Pre-Eclampsia N Hypertension N Osteoporosis N Immunizations Vaccine Type Date Status Note Provider Nam e and Address Organization Details Recorded Time MMR 6 completed Charlotte Moser null, [place] - [facility] 07/05/2023 08:56:01 Td (adult), 2 Lf tetanus toxoid, preservative free, adsorbed 1 completed Charlotte Ehsan null, [place] - [facility] 07/05/2023 08:56:01 Hep B, adolescent or pediatric 1 completed [facility] [facility] 07/05/2023 08:56:01 Hep B, adolescent or pediatric 1 completed [place] [facility] [facility] 07/05/2023 08:56:01 Hep B, adolescent or pediatric 1 completed Charlotte Ehsan null, [place] [facility] 07/05/2023 08:56:01 Past Encounters Encounter ID Performer Location Encounter Start Date Encounter Closed Date Diagnosis/Indication Diagnosis SNOMED-CT Code Diagnosis ICD10 Code Diagnosis Note [id number] Klaudia Post [address] [address] 12/17/2022 15:43:30 12/17/2022 16:37:46 Long-term drug therapy 593753939 Z79.899 Body mass index 30+ - obesity 308596981 Z68.36 [id number] Klaudia Post [address] [address] 07/05/2023 08:43:12 07/05/2023 09:53:41 Body mass index 30+ - obesity 553314067 Z68.36 [facility] reviewed[facility] dication compliance discussedL ast uds: 4Control substance agreement on fileadipex consent on file Long-term drug therapy 983102459 Z79.899 Right uppe r quadrant pain 302001353 R10.11 Diarrhea 44132090 R19.7 Family his tory of cancer of colon 397631801 Z80.0 [id number] Klaudia Post [address] [address] 07/15/2023 14:50:35 07/15/2023 15:01:25 Hyperglycemia 47308154 R73.9 [id number] Vestapradiperika Ocampolarisaestella [address] [address] 05/26/2024 17:35:25 05/26/2024 18:31:59 Acute bronchitis 49843535 J20.9 no sign of a bacterial infection. [...] hours Body mass index 30+ - obesity 333967278 Z68.36 Pt compliant with plan of careKasper reviewedme dication compliance discussedL ast uds: 5Control substance agreement on fileadipex consent on filewait to finish steroids before starting on med Long-term current use of drug therapy 097957007 Z79.213 [id number] Klaudia Ocampoalison [address] [address] 07/16/2024 14:30:30 07/16/2024 15:01:56 Body mass index 30+ - obesity 104533712 Z68.36 Pt compliant with plan of careKasper reviewedme dication compliance discussedL ast uds: 5Control substance agreement on fileadipex consent on filewait to finish steroids before starting on med [id number] Vestajinny alison [address] [address] 08/31/2024 15:45:46 08/31/2024 16:13:57 Body mass index 30+ - obesity 872337209 Z68.36 Pt compliant with plan of careKasper [...] Alves Member ID Guarantor Name 08/31/2024 1 [facility] Luis Miguel Rose [id number] Jose Rose 10/08/2024 1 [facility] [id number] Jose Rose [id number] Jose Rose Notes Date Note Type Note [...] worse. Klaudia Post APRN [address], [place], [address], [employer] - [facility] 07/05/2023 09:40:36 07/15/2023 text/html 37 yr old male presents for an a1c check due to abnormal glucose level on labs. Charlotte Moser [place], [place] - [facility] 07/15/2023 16:44:36 05/26/2024 text/html 38 yr old male presents for cough, wheezing and congestion for two days.pt states he also would like to restart adipex. reports he has been trying diet and exercise and has not been successful. pt states he did well on adipex Klaudia Post APRN [address], [place], [address], [place] - [facility] 05/26/2024 18:29:56 07/16/2024 text/html 38 yr old male presents for a weight loss follow up, down 10 lbs., pt states tolerating med well with diet and exercise Klaudia Post APRN [address], [place], [address], [place] - [facility] 07/16/2024 15:01:18 08/31/2024 text/html 38 year old male who presents to the office today for a follow up onweight loss- at today's appt he weighs, was in steel toe shoes, last visit he was in tennis shoesat his last appt on 07-16-24 he weighed 286 lbs. Klaudia Post, [employer] [address], [place], [address], [place] - [facility] 08/31/2024 16:24:17
--- OUTSIDE RECORDS SUMMARY | 2024-11-27 11:25 | XMS_ITS | Clinical Summary ---
Author Organization Healthcare Address [address] [place] [address] Care Team Providers Care Chain Link Fence Installer Name Role Phone Unavailable Primary Care Provider [...]
[2024-11-27 11:46] VITALS: BP 117/75; PULSE 62; RESP 16; TEMP 36.1; O2SAT 97; BMI 34.7
[2024-11-27 12:05] VITALS: BP 137/89; PULSE 65; RESP 16; O2SAT 97
[2024-11-27] MEDS: NITROGLYCERIN 0.4MG SL TABLET SL (12:05)
[2024-11-27 12:10] VITALS: BP 106/77; PULSE 61; RESP 16; O2SAT 100
[2024-11-27 12:15] VITALS: BP 111/66; PULSE 58; RESP 16; O2SAT 98
[2024-11-27 12:19] VITALS: BP 121/63; PULSE 67; RESP 16; O2SAT 95
--- NOTE | 2024-11-27 14:37 | CT_ITS ---
APPROVED REPORT Behavior Analyst: CLINICAL INDICATION Chest Pain TECHNIQUE Image Acquisition: A 128 slice MDCT scanner ([employer]) was used for data acquisition. A noncontrast coronary calcium scan was performed. A CT attenuation threshold of 130 Hounsfield units (HU) was used for the detection of calcium in contiguous voxels of 1 sq mm in area to be counted as individual lesions. Bolus tracking in the ascending aorta with a threshold of 180 HU was performed. Immediately afterwards, ECG synchronized cardiac CT was then performed from the cardiac base to apex using retrospective gating with ECG tube current modulation. A total of 85 mL of Isovue 370 mg/mL contrast medium was administered at 5 mL/sec followed by a saline flush using a biphasic injection protocol. A tube voltage of 120 KVp was used. The patient received the following medications prior to the cardiac CT. 0.8 mg of sublingual nitroglycerin The average heart rate at the time of acquisition was 67 bpm and regular. Image Reconstruction Transaxial images were reconstructed at 0.67 mm slide thickness. Data was reviewed interactively on an advanced workstation capable of 2 and 3-dimensional displays in all conventional reconstruction formats, including multiplanar reformations, maximum intensity projections, curved multiplanar reformations, and volume rendered reconstructions. When applicable, selected routine images describing the relevant coronary anatomy and pathology were saved and sent to PACS. Complications None Technical Quality Overall image quality was good. Coronary artery opacification was adequate. Total DLP (Dose-Length Product) is 1826.8 mGy-cm. The reported value represents the total of one or more individual components during the CT acquisition of this date and at this time, and as such, the same value may appear in more than one CT report depending on the interpreting/reporting physicians. COMPARISON None FINDINGS CT Coronary Calcium Scoring LMA (Left Main Artery) = 0 LAD (Left Anterior Descending) = 0 LCX (Left Coronary Circumflex) = 0 RCA (Right Coronary Artery) = 0 Total Calcium Score = 0 using the AJ-130 method. The interpretation of the calcium heart score is based on the following continuum*: 0 = no calcified plaque detected (risk of coronary artery disease is very low ??? less than 5%) 1-10 = calcium detected in extremely minimal levels (risk of coronary diseases is still low ??? less than 10%) 11-100 = mild levels of plaque detected with certainty (mild or minimal narrowing of heart arteries is likely) 101-400 = definite,at least moderate levels of plaque detected (relatively high risk of a heart attack within 3-5 years) >401-999 = extensive levels of plaque detected (high risk of heart attack, high levels of vascular disease are present, high likelihood of at least one significant coronary narrowing) *The calcium heart score quantifies the burden of coronary calcification/plaque in the coronary arteries. The calcium heart score is not able to evaluate the presence or burden of non-calcified (i.e. soft) plaque. There is no identifiable calcification in the aortic valve, mitral annulus or mitral valve, pericardium, or myocardium. Coronary CT Angiography The coronary arterial system is right dominant. Quantitative Stenosis Grading: Left Main (LM): The left main originates normally from the left sinus of Valsalva. The LM bifurcates into the left anterior descending artery and left circumflex artery. The LM is patent with no evidence of atherosclerosis. Left Anterior Descending (LAD) and Diagonal Branches: The LAD gives off 3 diagonal branch(es). The LAD and its branches are patent with no evidence of atherosclerosis. There is no evidence of LAD-myocardial bridge. Left Circumflex (LCX) and Obtuse Marginals (OM): The LCX gives off 1 Obtuse Marginal (OM) branch(es). The LCX and its branches are patent with no evidence of atherosclerosis. Right Coronary Artery (RCA): The RCA originates normally from the right sinus of Valsalva. The RCA gives off a posterior descending artery (PDA) and posterolateral (PL) branches. The RCA and its branches are patent with no evidence of atherosclerosis. Non-Coronary Cardiac Findings: Analysis of the left ventricular (LV) structure and function was performed after 3-D reconstruction of the LV from axial images, with user-corrected automatic contouring for assessment of LV volumes and user-defined reconstruction from oblique planes for measurement of 3-D cardiac structure and function. -The left ventricle systolic function is normal. -There is no left atrial appendage filling defect. Two right pulmonary veins and two left pulmonary veins drain normally into the left atrium. -No pericardial thickening or calcification. -Central and branch pulmonary arteries in the [id number] are unremarkable. -Thoracic aorta within the visualized thoracic aortic-branches in the [id number] is unremarkable. Extracardiac Structures No significant extra-cardiac findings. Note, however, that this study is focused on the cardiac findings. IMPRESSION -No coronary calcification with an Agatston score = 0 using the AJ-130 method. -No evidence of significant flow-limiting atherosclerosis of the coronary arteries. -No evidence of coronary anomalies or myocardial bridges. -CAD-RADS 0. Management recommendations per ACC/AHA guidelines*, as clinically appropriate. *Recommendations: CAD RADS 0: Reassurance. Consider non-atherosclerotic causes of chest pain. CAD RADS 1: Consider non-atherosclerotic causes of chest pain. Consider preventive therapy and risk factor modification. CAD RADS 2: Consider non-atherosclerotic causes of chest pain. Consider preventive therapy and risk factor modification, particularly for patients with nonobstructive plaque in multiple segments. CAD RADS 3: Consider further functional testing. Consider symptom-guided anti-ischemic and preventive pharmacotherapy as well as risk factor modification per published guideline statements. CAD RADS 4A: Consider further functional testing or invasive coronary angiography with revascularization per published guideline statements. Consider symptom-guided anti-ischemic and preventive pharmacotherapy as well as risk factor modification per published guideline statements. CAD RADS 4B: Invasive coronary angiography recommended with revascularization per published guideline statements. Consider symptom-guided anti-ischemic and preventive pharmacotherapy as well as risk factor modification per published guideline statements. CAD RADS 5: Consider invasive angiography and/or viability assessment with revascularization per published guideline statements. Consider symptom-guided anti-ischemic and preventive pharmacotherapy as well as risk factor modification per published guideline statements. CRITICAL RESULT None COMMUNICATION Per this written report The coronary and cardiac findings of this CCTA were reviewed, reported, and signed by Juan Ramon Foster MD (Planer Setup Operator) Conclusion Electronically signed by : Tammie Foster MD 12/01/2024 09:36:26
== END 2024-11-27 12:26 | disposition home or self-care (01) ==
PROVIDERS: PCP Family Medicine; Visit Provider Family Medicine
DX: R07.9 Chest pain, unspecified (principal)
CPT/HCPCS: 75574